=== PATIENT | female | born 1945 | race Caucasian/White ===

== ENCOUNTER → 2017-08-29 | Outpatient (CLI) | payer MEDICARE ==
[2017-08-29 13:24] LABS: CH 31.9; CHCM 32.8; HCT 43.9 % (34.0-46.0); HDW 2.33; HGB 14.5 gm/dL (11.4-16.0); MCH 32.2 pg (25.0-35.0); MCHC 32.9 g/dL (31.0-37.0); MCV 97.9 fL (80.0-100.0); Mean Platelet Volume 7.9; RBC 4.49 m/uL (3.80-5.40); RDW 13.7 % (11.5-15.5); WBC 7.1 k/uL (3.8-10.6)
[2017-08-29 13:30] LABS: Partial Thromboplastin Time 23.3 sec (22.0-30.0)
[2017-08-29 13:38] LABS: Calcium 10.4 mg/dL (8.4-10.2); Total Bilirubin 0.6 mg/dL (0.2-1.3); Total Protein 7.1 g/dL (6.3-8.2)
[2017-08-29 14:12] LABS: Appearance,Urine Clear (Clear); Bilirubin,Urine Negative (Negative); Glucose,Urine (UA) Negative (Negative); Ketones,Urine Negative (Negative); Leukocyte Esterase,Urine Trace (Negative); Mucus,Urine Rare /hpf; Nitrite,Urine Negative (Negative); Particle Count 3879; Protein,Urine Negative (Negative); RBC,Urine <1 /hpf (0-5); Specific Gravity,Urine 1.017 (1.001-1.035); Squamous Epithelial Cell,Urine <1 /hpf (0-4); UA Billing (MACRO vs. MICRO) MICRO; Urobilinogen,Urine <2.0 mg/dL (<2.0); WBC,Urine 2 /hpf (0-5)
== END | disposition home or self-care (01) ==
LOC: LABWHC1 12:43
PROVIDERS: ATTEND Orthopaedic Surgery Sports Medicine
DX: Z01.812 Encounter for preprocedural laboratory examination (principal)
CPT/HCPCS: 36415; 80053; 81001; 85027; 85610; 85730; 87070

== ENCOUNTER → 2018-03-17 | Outpatient (CLI) | payer MEDICARE ==
[2018-03-17 11:35] LABS: Basophils % (A) 0 %; Eosinophils # (A) 0.3 k/uL (0-0.7); Eosinophils % (A) 4 %; HCT 45.3 % (34.0-46.0); HGB 14.8 gm/dL (11.4-16.0); Lymphocytes # (A) 2.1 k/uL (1.0-4.8); Lymphocytes % (A) 28 %; MCH 31.3 pg (25.0-35.0); MCHC 32.6 g/dL (31.0-37.0); MCV 96.1 fL (80.0-100.0); Mean Platelet Volume 7.4; Monocytes # (A) 0.5 k/uL (0-1.0); Monocytes % (A) 7 %; Neutrophils # (A) 4.4 k/uL (1.3-7.7); Neutrophils % (A) 59 %; Platelet Count 265 k/uL (150-450); RBC 4.72 m/uL (3.80-5.40); RDW 13.4 % (11.5-15.5); WBC 7.5 k/uL (3.8-10.6)
[2018-03-17 12:06] LABS: Calcium 9.8 mg/dL (8.4-10.2); Potassium 5.6 mmol/L (3.5-5.1); Total Bilirubin 0.7 mg/dL (0.2-1.3); Total Protein 6.8 g/dL (6.3-8.2)
== END | disposition home or self-care (01) ==
LOC: LABWHC1 10:47
PROVIDERS: ATTEND Family Medicine
DX: E11.22 Type 2 diabetes mellitus with diabetic chronic kidney disease (principal); N18.3 Chronic kidney disease, stage 3 (moderate); E55.9 Vitamin D deficiency, unspecified; E78.5 Hyperlipidemia, unspecified
CPT/HCPCS: 36415; 80053; 80061; 82306; 83036; 85025

== ENCOUNTER → 2018-09-20 | Outpatient (CLI) | payer MEDICARE ==
--- NOTE | 2018-09-23 14:42 | MM ---
Reason for exam: additional evaluation requested from prior study. Last mammogram was performed 2 years and 6 months ago. History: Patient is postmenopausal, has history of breast cancer at age 66, and is nulliparous. Family history of breast cancer in paternal aunt. Benign US biopsy breast VAD RT of the right breast, October 28, 2014. Mastectomy of the left breast, September 21, 2011. Saline implant in the left breast, 2011. Malignant u/S left breast localization of the left breast, August 20, 2011. Malignant u/S left breast localization additional of the left breast, August 20, 2011. Took estrogen for 5 years. Taking antineoplastic beginning at age 66. Right breast reduction. Physical Findings: Nurse did not find any significant physical abnormalities on exam. MG 3D Diag Mammo W/Cad RT CC, MLO, ML, and spot compression MLO view(s) were taken of the right breast. Prior study comparison: March 29, 2016, right breast MG 3d diag mammo w/cad RT. February 27, 2015, right breast MG diagnostic mammo RT w CAD. The breast tissue is heterogeneously dense. This may lower the sensitivity of mammography. Right superior middle depth subtle asymmetry appears improved as fibroglandular tissue on mediolateral and spot compression views. These results were verbally communicated with the patient and result sheet given to the patient on 09/20/18. ASSESSMENT: Benign, BI-RAD 2 RECOMMENDATION: Follow-up diagnostic mammogram of the right breast in 1 year.
== END | disposition home or self-care (01) ==
LOC: RADMAMWWP 07:41
PROVIDERS: ATTEND Family Medicine
DX: Z12.31 Encounter for screening mammogram for malignant neoplasm of breast (principal); C50.912 Malignant neoplasm of unspecified site of left female breast
CPT/HCPCS: 77065; G0279; 77061

== ENCOUNTER 2019-02-22 08:00 | Inpatient (IN) | payer MEDICARE ==
[2019-02-22] MEDS ORDERED: HEPARIN SODIUM,PORCINE 5,000 UNIT/ML 1 ML VIAL IV PRN (09:05)
[2019-02-22] MEDS ORDERED: HEPARIN SODIUM,PORCINE 5,000 UNIT/ML 1 ML VIAL IV ONE (09:05)
--- NOTE | 2019-02-22 09:09 | ED ---
General Adult HPI - General Chief complaint: Chest Pain Stated complaint: Chest pain Time Seen by Provider: 02/22/19 08:02 Source: patient Mode of arrival: EMS Limitations: no limitations - History of Present Illness Initial comments: Dictation was produced using Go[employer] dictation software. please excuse any grammatical, word or spelling errors. Chief Complaint: 73-year-old female past medical history of diabetes dyslipidemia COPD and asthma presents via transfer from [facility] for NSTEMI. History of Present Illness: 73-year-old female yesterday she experience ACS-type symptoms. 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 During cooking she experience mild chest discomfort with radiation to the back and left upper extremity. She states the symptoms was not like anything she is ever expressed before she. She went to the local emergency department. Patient initial EKG did not show any abnormal findings. She did have labs performed initial troponin was negative. Patient second troponin showed an elevation of 0.6. Patient currently is asymptomatic at this time. She does report that her symptoms are worse with exertion. The ROS documented in this emergency department record has been reviewed and confirmed by me. Those systems with pertinent positive or negative responses have been documented in the HPI. All other systems are other negative and/or noncontributory. PHYSICAL EXAM: General Impression: Alert and oriented x3, not in acute distress HEENT: Normocephalic atraumatic, extra-ocular movements intact, pupils equal and reactive to light bilaterally, mucous membranes moist. Cardiovascular: Heart regular rate and rhythm, S1&S2 audible, no murmurs, rubs or gallops Chest: Lungs clear to auscultation bilaterally, no rhonchi, no wheeze, no rales Abdomen: Bowel sounds present, abdomen soft, non-tender, non-distended, no organomegaly Musculoskeletal: Pulses present and equal in all extremities, no peripheral edema Motor: no focal deficits noted Neurological: CN II-XII grossly intact, no focal motor or sensory deficits noted Skin: Intact with no visualized rashes Psych: Normal affect and mood ED course: 73-year-old female transferred from [place] emergency department for elevated troponin and non-ST segment elevation OK. Signs upon arrival are within acceptable limits. Labs and documentation from [facility] reviewed by myself. Patient evaluated at bedside. Patient is asymptomatic at this time. Patient continued on heparin.Patient really had received aspirin prior to transfer. Patient continues to be asymptomatic. Discussed patient case with son physician group Dr. Mosquera who is willing to accept transfer for admission. Cardiology on consultation. EKG interpretation: Ventricular rate 67, normal sinus rhythm, AZ interval 204, QRS 86, QTC 445. No AZ prolongation, no QTC prolongation. There is an isolated T-wave inversion in the aVL. There is also T-wave inversions in the anterior precordial leads. This point these changes are felt to be nonspecific.. - Related Data Home Medications Medication Instructions Recorded Confirmed Citalopram Hydrobromide [CeleXA] 20 mg PO DAILY 04/24/15 02/22/19 Diltiazem HCl [Diltiazem ER] 240 mg PO DAILY 04/24/15 02/22/19 Letrozole 2.5 mg PO DAILY 04/24/15 02/22/19 Montelukast Sodium [Singulair] 10 mg PO DAILY 04/24/15 02/22/19 metFORMIN HCL [Glucophage] 500 mg PO AC-BID 04/24/15 02/22/19 Albuterol Inhaler [Ventolin Hfa 1 - 2 puff INHALATION RT-Q6H PRN 09/06/17 02/22/19 Inhaler] Lisinopril [Zestril] 5 mg PO DAILY 09/06/17 02/22/19 Omeprazole 20 mg PO DAILY PRN 09/06/17 02/22/19 Albuterol Nebulized [Ventolin 2.5 mg INHALATION RT-Q4H PRN 02/22/19 02/22/19 Nebulized] Aspirin EC [Ecotrin Low Dose] 81 mg PO DAILY 02/22/19 02/22/19 Atorvastatin Calcium [Lipitor] 10 mg PO HS 02/22/19 02/22/19 Ergocalciferol (Vitamin D2) 50,000 unit PO Q7D 02/22/19 02/22/19 [Drisdol] Naproxen Sodium [Aleve] 220 - 440 mg PO Q12HR PRN 02/22/19 02/22/19 Allergies Allergy/AdvReac Type Severity Reaction Status Date / Time Sulfa (Sulfonamide Allergy Unknown Verified 02/22/19 09:20 Antibiotics) Childhood Review of Systems ROS Statement: Those systems with pertinent positive or pertinent negative responses have been documented in the HPI. ROS Other: All systems not noted in ROS Statement are negative. Past Medical History Past Medical History: Asthma, COPD, Diabetes Mellitus, Hyperlipidemia Additional Past Medical History / Comment(s): breast cancer History of Any Multi-Drug Resistant Organisms: None Reported Past Surgical History: Adenoidectomy, Cholecystectomy, Orthopedic Surgery, Tonsillectomy Additional Past Surgical History / Comment(s): sinus, esophagus sx Past Anesthesia/Blood Transfusion Reactions: Previous Problems w/ Anesthesia, Motion Sickness Additional Past Anesthesia/Blood Transfusion Reaction / Comment(s): STATES DIFFICULT INTUBATION - STATES "SMALL THROAT". DIFFICULTY WAKING UP. Past Psychological History: No Psychological Hx Reported Smoking Status: Never smoker Past Alcohol Use History: None Reported Past Drug Use History: None Reported - Past Family History Father Family Medical History: Renal Disease Brother(s) Family Medical History: Renal Disease Mother Family Medical History: Deep Vein Thrombosis (DVT) General Exam Limitations: no limitations Course Vital Signs 02/22/19 02/22/19 02/22/19 08:04 08:12 08:30 Temperature 98.1 F Pulse Rate 73 71 Pulse Rate [ 69 [employer] ] Respiratory 16 20 Rate Blood Pressure 109/83 109/83 O2 Sat by Pulse 95 Oximetry 02/22/19 02/22/19 02/22/19 09:00 09:30 10:00 Temperature Pulse Rate 70 72 73 Pulse Rate [ [employer] ] Respiratory 15 19 15 Rate Blood Pressure 109/83 123/74 124/70 O2 Sat by Pulse 94 L 94 L Oximetry Disposition Clinical Impression: NSTEMI (non-ST elevated myocardial infarction) [facility] Condition: Fair Referrals: Annel Morgan MD [Primary Care Provider] - 1-2 days Decision Time: 10:17
[2019-02-22] MEDS: HEPARIN SOD,PORK IN 0.45% NACL 25,000 UNIT in 0.45% NACL 1 250ML.BAG IV SCH (09:14)
[2019-02-22] MEDS ORDERED: NITROGLYCERIN SL TABS 0.4 MG TAB SUBLINGUAL PRN (10:13)
[2019-02-22] MEDS ORDERED: PANTOPRAZOLE 40 MG TABLET PO PRN (12:34)
--- NOTE | 2019-02-22 12:39 | P.HPIM ---
History of Present Illness H&P Date: 02/22/19 The patient is a 73 yo F with a PMH of HTN, DM, HLD, breast cancer s/p L sided mastectomy, and asthma who presented to [facility]'s ED on night of 02/21/19 for sudden onset of chest pain. 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 She reports that her pain resolved on her way to the ED. She did not take anything to relieve her symptoms. She reports never having such pain before. She denied prior history of MIs or even having undergone stress testing. She reported family history of MIs w/ CABG in her father and her mother having suffered multiple TIAs. At time of the interview, she reports that her symptoms had resolved completely and she was at her baseline. The patient underwent an extensive evaluation in [place] ED w/ EKG showing NSR @ 67 bpm w/ first degree AV block and TW flattening in leads V1- V3 and no ST-segment changes. The patient's initial troponin was < 0.05 which increased to 0.06. WBC was 7.9, Hgb 14.2, platelets 261, BUN 19, Cr 1.0, and Magnesium 1.5. The patient was transferred to the [facility] ED and admitted to the medicine service for further management. Review of Systems Pertinent positives and negatives as discussed in HPI, a complete review of systems was performed and all other systems are negative. Past Medical History Past Medical History: Asthma, Cancer, COPD, Diabetes Mellitus, GERD/Reflux, Hyperlipidemia, Hypertension, Pneumonia, Renal Disease Additional Past Medical History / Comment(s): Bronchitis, NIDDM type II, neuropathy bilateral feet, L breast cancer with surgery, CKD thought d/t motrin but numbers are improving, ZANE-pt lost her CPap during a move, generalized arthritis, L carpal tunnel syndrome, UTIs, sinus problems-better since surgery. History of Any Multi-Drug Resistant Organisms: None Reported Past Surgical History: Adenoidectomy, Cholecystectomy, Orthopedic Surgery, Tonsillectomy Additional Past Surgical History / Comment(s): L breast biopsy, L mastectomy/reconstructive surgery, total L knee arthroplasty, bilateral feet bunionectomies, colonoscopy. Past Anesthesia/Blood Transfusion Reactions: Previous Problems w/ Anesthesia, Motion Sickness Additional Past Anesthesia/Blood Transfusion Reaction / Comment(s): STATES DIFFICULT INTUBATION - STATES "SMALL THROAT". DIFFICULTY WAKING UP. Smoking Status: Never smoker - Past Family History Father Family Medical History: Renal Disease Additional Family Medical History / Comment(s): Father was born with one functioning kidney. He had a OK in his late 70s. Brother(s) Family Medical History: Cancer Additional Family Medical History / Comment(s): Kidney cancer Mother Family Medical History: Deep Vein Thrombosis (DVT) Additional Family Medical History / Comment(s): Mother lived to be 95 yrs old. Medications and Allergies Home Medications Medication Instructions Recorded Confirmed Type Citalopram Hydrobromide [CeleXA] 20 mg PO DAILY 04/24/15 02/22/19 History Diltiazem HCl [Diltiazem ER] 240 mg PO DAILY 04/24/15 02/22/19 History Letrozole 2.5 mg PO DAILY 04/24/15 02/22/19 History Montelukast Sodium [Singulair] 10 mg PO DAILY 04/24/15 02/22/19 History metFORMIN HCL [Glucophage] 500 mg PO AC-BID 04/24/15 02/22/19 History Albuterol Inhaler [Ventolin Hfa 1 - 2 puff INHALATION RT-Q6H PRN 09/06/17 02/22/19 History Inhaler] Lisinopril [Zestril] 5 mg PO DAILY 09/06/17 02/22/19 History Omeprazole 20 mg PO DAILY PRN 09/06/17 02/22/19 History Albuterol Nebulized [Ventolin 2.5 mg INHALATION RT-Q4H PRN 02/22/19 02/22/19 History Nebulized] Aspirin EC [Ecotrin Low Dose] 81 mg PO DAILY 02/22/19 02/22/19 History Atorvastatin Calcium [Lipitor] 10 mg PO HS 02/22/19 02/22/19 History Ergocalciferol (Vitamin D2) 50,000 unit PO Q7D 02/22/19 02/22/19 History [Drisdol] Naproxen Sodium [Aleve] 220 - 440 mg PO Q12HR PRN 02/22/19 02/22/19 History Allergies Allergy/AdvReac Type Severity Reaction Status Date / Time Sulfa (Sulfonamide Allergy Unknown Verified 02/22/19 09:20 Antibiotics) Childhood Physical Exam Vitals: Vital Signs Temp Pulse Pulse Resp BP BP Pulse Ox 02/22/19 11:30 85 16 02/22/19 11:28 98.2 F 85 16 131/84 95 02/22/19 10:00 73 15 124/70 94 L 02/22/19 09:30 72 19 123/74 94 L 02/22/19 09:00 70 15 109/83 02/22/19 08:30 71 20 109/83 02/22/19 08:12 69 02/22/19 08:04 98.1 F 73 16 109/83 95 Intake and Output 02/21/19 02/22/19 02/22/19 22:59 06:59 14:59 Other: Weight 73.028 kg General: non toxic, no distress, appears at stated age, obese Derm: no unusual rashes/lesions no unusual ecchymoses, warm, dry Head: atraumatic, normocephalic, symmetric Eyes: EOMI, no lid lag, anicteric sclera, pupils equal round reactive to light ENT: Nose and ears atraumatic, no thrush, no pharyngeal erythema Neck: No thyromegaly, no cervical lymphadenopathy, trachea midline, supple Mouth: no lip lesion, mucus membranes moist Cardiovascular: S1S2 reg, no murmur, positive posterior tibial pulse bilateral, no edema, capillary refill less than 2 seconds Lungs: CTA bilateral, no rhonchi, no rales , no accessory muscle use Abdominal: soft, nontender to palpation, no guarding, no appreciable organomegaly, normal bowel sounds Ext: no gross muscle atrophy, muscle strength 5 out of 5 in all 4 extremities grossly, no contractures, Neuro: CN II-XI grossly intact, light touch intact all 4 extremities, finger to nose within normal limits, Psych: Alert, oriented, appropriate affect Thrombosis Risk Factor Assmnt - Choose All That Apply Any of the Below Risk Factors Present?: Yes Each Factor Represents 1 point: Abnormal pulmonary function (COPD), Acute OK, Obesity (BMI >25) Other Risk Factors: Yes Each Risk Factor Represents 2 Points: Age 61-74 years Other congenital or acquired thrombophilia - If yes, enter type in comment: No Thrombosis Risk Factor Assessment Total Risk Factor Score: 5 Thrombosis Risk Factor Assessment Level: High Risk Assessment and Plan Plan: NSTEMI -C/w Heparin infusion -C/w Aspirin, Statin, Plavix -Nitro prn -Cardiology consulted -Trend troponin and EKGs -Supplemental oxygen DM -ALICIA with FS -Hold oral hypoglycemics HTN, HLD, Asthma -Resume home medications DVT prophylaxis -Heparin infusion The patient is admitted with an anticipated greater than 2 midnight stay for evaluation of NSTEMI. CODE STATUS:No Code Discussed with: Patient, Daughter Anticipated discharge date: 02/25/[address]: Home A total of 45 minutes was spent on the care of this complex patient more than 50% of the time was spent in counseling and care coordination.
[2019-02-22] MEDS: CLOPIDOGREL 75 MG TAB PO SCH (13:21)
[2019-02-22] MEDS: ATORVASTATIN 80 MG TAB PO SCH (13:21)
[2019-02-22] MEDS: INSULIN ASPART (NovoLOG) 100 UNIT/ML VIAL SQ SCH ×2 (17:09→20:54)
[2019-02-22 17:10] LABS: Glucose,Whole Blood 100 mg/dL (75-99)
[2019-02-22] MEDS ORDERED: ACETAMINOPHEN TAB 325 MG TAB PO PRN (17:36)
[2019-02-22 20:39] LABS: Glucose,Whole Blood 202 mg/dL (75-99)
[2019-02-23 06:17] LABS: Glucose,Whole Blood 133 mg/dL (75-99)
[2019-02-23] MEDS: INSULIN ASPART (NovoLOG) 100 UNIT/ML VIAL SQ SCH ×4 (06:19→20:55)
[2019-02-23] MEDS: ALBUTEROL NEBULIZED 2.5 MG/3 ML INHALATION PRN ×3 (07:29→21:03)
[2019-02-23 08:04] LABS: Cholesterol 150 mg/dL (<200); HDL Cholesterol 52 mg/dL (40-60); LDL Cholesterol,Calculated 72 mg/dL (0-99); Triglycerides 129 mg/dL (<150)
[2019-02-23] MEDS: MONTELUKAST 10 MG TAB PO SCH (08:19)
[2019-02-23] MEDS: LISINOPRIL 5 MG TAB PO SCH (08:19)
[2019-02-23] MEDS: CLOPIDOGREL 75 MG TAB PO SCH (08:19)
[2019-02-23] MEDS: LETROZOLE 2.5 MG TAB PO SCH (08:19)
[2019-02-23] MEDS: ATORVASTATIN 80 MG TAB PO SCH (08:19)
[2019-02-23] MEDS: CITALOPRAM HYDROBROMIDE 20 MG TAB PO SCH (08:19)
--- NOTE | 2019-02-23 08:44 | P.CRDCN ---
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 Apparently she walked from morning, 8:00 to 6:00 in the evening, and went home. She started having some tight chest discomfort on the left side of the chest going to the left arm and also the back. She didn't feel nauseous, but she had a Prozac and vomiting and she was felt slightly short of breath. She did take some of her inhalers without much help. Finally she called her daughter and with help of her neighbor's, patient went to [facility]. Patient was treated there and was transferred to [facility]. By the time patient went to the hospital, her chest pains eased up. Since admission here patient has been s table. However her troponins showed mild elevation suggestive of possible unstable angina versus non-STEMI. Her EKG did not reveal any acute changes. In view of her typical chest pain and risk factor profile with abnormal cardiac enzymes, patient is advised to have a cardiac catheterization for definitive diagnosis. Patient and family were explained the risks and benefits of the procedure. Review of Systems As per the chart Past Medical History Past Medical History: Asthma, Cancer, COPD, Diabetes Mellitus, GERD/Reflux, Hy perlipidemia, Hypertension, Pneumonia, Renal Disease Additional Past Medical History / Comment(s): Bronchitis, NIDDM type II, neuropathy bilateral feet, L breast cancer with surgery, CKD thought d/t motrin but numbers are improving, ZANE-pt lost her CPap during a move, generalized arthritis, L carpal tunnel syndrome, UTIs, sinus problems-better since surgery. History of Any Multi-Drug Resistant Organisms: None Reported Past Surgical History: Adenoidectomy, Cholecystectomy, Orthopedic Surgery, Tonsillectomy Additional Past Surgical History / Comment(s): L breast biopsy, L mastectomy/reconstructive surgery, total L knee arthroplasty, bilateral feet bunionectomies, colonoscopy. Past Anesthesia/Blood Transfusion Reactions: Previous Problems w/ Anesthesia, Motion Sickness Additional Past Anesthesia/Blood Transfusion Reaction / Comment(s): STATES DIFFICULT INTUBATION - STATES "SMALL THROAT". DIFFICULTY WAKING UP. Smoking Status: Never smoker - Past Family History Father Family Medical History: Renal Disease Additional Family Medical History / Comment(s): Father was born with one functioning kidney. He had a [place] in his late 70s. Brother(s) Family Medical History: Cancer Additional Family Medical History / Comment(s): Kidney cancer Mother Family Medical History: Deep Vein Thrombosis (DVT) Additional Family Medical History / Comment(s): Mother lived to be 95 yrs old. Medications and Allergies Home Medications Medication Instructions Recorded Confirmed Type Citalopram Hydrobromide [CeleXA] 20 mg PO DAILY 04/24/15 02/22/19 History Diltiazem HCl [Diltiazem ER] 240 mg PO DAILY 04/24/15 02/22/19 History Letrozole 2.5 mg PO DAILY 04/24/15 02/22/19 History Montelukast Sodium [Singulair] 10 mg PO DAILY 04/24/15 02/22/19 History metFORMIN HCL [Glucophage] 500 mg PO AC-BID 04/24/15 02/22/19 History Albuterol Inhaler [Ventolin Hfa 1 - 2 puff INHALATION RT-Q6H PRN 09/06/17 02/22/19 History Inhaler] Lisinopril [Zestril] 5 mg PO DAILY 09/06/17 02/22/19 History Omeprazole 20 mg PO DAILY PRN 09/06/17 02/22/19 History Albuterol Nebulized [Ventolin 2.5 mg INHALATION RT-Q4H PRN 02/22/19 02/22/19 History Nebulized] Aspirin EC [Ecotrin Low Dose] 81 mg PO DAILY 02/22/19 02/22/19 History Atorvastatin Calcium [Lipitor] 10 mg PO HS 02/22/19 02/22/19 History Ergocalciferol (Vitamin D2) 50,000 unit PO Q7D 02/22/19 02/22/19 History [Drisdol] Naproxen Sodium [Aleve] 220 - 440 mg PO Q12HR PRN 02/22/19 02/22/19 History Allergies Allergy/AdvReac Type Severity Reaction Status Date / Time Sulfa (Sulfonamide Allergy Unknown Verified 02/22/19 09:20 Antibiotics) Childhood Physical Exam Vitals: Vital Signs Temp Pulse Pulse Resp BP BP Pulse Ox 02/23/19 07:37 74 02/23/19 07:29 72 02/23/19 04:00 97.8 F 89 18 174/89 96 02/23/19 02:59 82 02/22/19 23:17 82 18 152/72 95 02/22/19 20:00 98 F 80 18 168/80 94 L 02/22/19 17:22 98.2 F 81 18 157/82 95 02/22/19 16:00 97.6 F 84 16 142/76 94 L 02/22/19 11:30 85 16 02/22/19 11:28 98.2 F 85 16 131/84 95 02/22/19 10:00 73 15 124/70 94 L 02/22/19 09:30 72 19 123/74 94 L 02/22/19 09:00 70 15 109/83 Intake and Output 02/22/19 02/23/19 02/23/19 22:59 06:59 14:59 Intake Total 549.52 79.066 Balance 549.52 79.066 Intake: Intake, IV Titration 69.52 79.066 Amount Heparin Sod,Pork in 0.45% 69.52 79.066 NaCl 25,000 unit In 0.45 % NaCl 1 250ml.bag @ 12 UNITS/KG/HR 8.763 mls/hr IV .Q24H [facility] Rx#: [id number] Oral 480 Other: # Voids 1 1 Weight 71.5 kg GENERAL EXAM: Patient is alert and oriented and doesn't appear to be in any acute distress HEENT: Normocephalic. Normal reaction of pupils, equal size, normal range of extraocular motion. No erythema or exudates in the throat. NECK: No masses, no nuchal rigidity. CHEST: No chest wall deformity. LUNGS: Equal air entry with no crackles or wheeze. HEART: S1 and S2 normal with no audible mumurs or gallops. Regular rhythm, femorals equal on both sides.. ABDOMEN: No hepatosplenomegaly, normal bowel sounds, no guarding or rigidity. SKIN: No rashes CENTRAL NERVOUS SYSTEM: No focal deficits. EXTREMITIES: No cyanosis, clubbing or edema. Results Cardiac Enzymes 02/22/19 02/22/19 Range/Units 11:03 16:23 Troponin I 0.406 H* 0.329 H* (0.000-0.034) ng/mL Coagulation 02/22/19 02/22/19 02/23/19 Range/Units 16:23 23:38 07:07 APTT 41.6 H 91.6 H 72.3 H (22.0-30.0) sec Lipids 02/23/19 Range/Units 07:07 Triglycerides 129 (<150) mg/dL Cholesterol 150 (<200) mg/dL HDL Cholesterol 52 (40-60) mg/dL Current Medications Generic Name Dose Route Start Last Admin Trade Name Maciel PRN Reason Stop Dose Admin Acetaminophen 650 mg 02/22/19 17:36 02/23/19 08:19 Tylenol Tab PO 650 mg Q6HR PRN Administration Fever and/ or Pain Albuterol Sulfate 2.5 mg 02/22/19 12:34 02/23/19 07:29 Ventolin Nebulized INHALATION 2.5 mg RT-Q4H PRN Administration Shortness Of Breath Aspirin 325 mg 02/23/19 09:00 02/23/19 08:19 Aspirin PO 325 mg DAILY [facility] Administration Atorvastatin Calcium 80 mg 02/22/19 12:45 02/23/19 08:19 Lipitor PO 80 mg DAILY [facility] Administration Citalopram Hydrobromide 20 mg 02/23/19 09:00 02/23/19 08:19 Celexa PO 20 mg DAILY [facility] Administration Clopidogrel Bisulfate 75 mg 02/22/19 12:45 02/23/19 08:19 Plavix PO 75 mg DAILY [facility] Administration Diltiazem HCl 240 mg 02/23/19 09:00 02/23/19 08:19 Cardizem Cd PO 240 mg DAILY [facility] Administration Ergocalciferol 50,000 unit 02/28/19 09:00 Vitamin D2 PO Q7D [facility] Heparin Sodium (Porcine) 0 unit 02/22/19 09:05 02/22/19 17:14 Heparin IV 1,825 unit PER PROTOCOL PRN Administration Low PTT Protocol Heparin Sodium/Sodium Chloride 250 mls @ 8.763 mls/hr 02/22/19 09:15 02/23/19 00:54 25,000 unit/ Sodium Chloride IV 12 units/kg/hr .Q24H [facility] 8.763 mls/hr Titration Protocol 12 UNITS/KG/HR Insulin Aspart 0 unit 02/22/19 17:30 02/23/19 06:19 Novolog SQ Not Given ACHS [facility] Protocol Letrozole 2.5 mg 02/23/19 09:00 02/23/19 08:19 Femara PO 2.5 mg DAILY [facility] Administration Lisinopril 5 mg 02/23/19 09:00 02/23/19 08:19 Zestril PO 5 mg DAILY [facility] Administration Montelukast Sodium 10 mg 02/23/19 09:00 02/23/19 08:19 Singulair PO 10 mg DAILY [facility] Administration Nitroglycerin 0.4 mg 02/22/19 10:13 Nitrostat SUBLINGUAL Q5M PRN Chest Pain Pantoprazole Sodium 40 mg 02/22/19 12:34 Protonix PO DAILY PRN Heartburn Intake and Output 02/22/19 02/23/19 02/23/19 22:59 06:59 14:59 Intake Total 549.52 79.066 Balance 549.52 79.066 Intake: Intake, IV Titration 69.52 79.066 Amount Heparin Sod,Pork in 0.45% 69.52 79.066 NaCl 25,000 unit In 0.45 % NaCl 1 250ml.bag @ 12 UNITS/KG/HR 8.763 mls/hr IV .Q24H [facility] Rx#: [id number] Oral 480 Other: # Voids 1 1 Weight 71.5 kg EKG Interpretations (text) Sinus rhythm with nonspecific ST-T changes Assessment and Plan (1) NSTEMI (non-ST elevated myocardial infarction) Current Visit: Yes Status: Acute Code(s): I21.4 - NON-ST ELEVATION (NSTEMI) MYOCARDIAL INFARCTION SNOMED Code(s): 22496447 (2) Asthma Current Visit: No Status: Acute Code(s): J45.909 - UNSPECIFIED ASTHMA, UNCOMPLICATED SNOMED Code(s): 558720491 (3) Diabetes mellitus Current Visit: No Status: Acute Code(s): E11.9 - TYPE 2 DIABETES MELLITUS WITHOUT COMPLICATIONS SNOMED Code(s): 51100259 (4) GERD (gastroesophageal reflux disease) Current Visit: No Status: Acute Code(s): K21.9 - GASTRO-ESOPHAGEAL REFLUX DISEASE WITHOUT ESOPHAGITIS SNOMED Code(s): 589279564 (5) Hyperlipidemia Current Visit: No Status: Acute Code(s): E78.5 - HYPERLIPIDEMIA, UNSPECIFIED SNOMED Code(s): 40798156 (6) Hypertension Current Visit: No Status: Acute Code(s): I10 - ESSENTIAL (PRIMARY) HYPERTENSION SNOMED Code(s): 64093161 Plan: Patient to be continued on heparin, nitrates, beta nikolay, aspirin and probably Plavix. Echocardiogram. We'll proceed with cardiac catheterization for definitive diagnosis
[2019-02-23] MEDS ORDERED: ASPIRIN 325 MG TAB PO SCH (09:00)
[2019-02-23] MEDS ORDERED: DILTIAZEM CD 240 MG CAP.ER.24H PO SCH (09:00)
[2019-02-23] MEDS: METOPROLOL TARTRATE 25 MG TAB PO SCH ×2 (09:48→23:30)
[2019-02-23] MEDS: HEPARIN SOD,PORK IN 0.45% NACL 25,000 UNIT in 0.45% NACL 1 250ML.BAG IV SCH (09:49)
[2019-02-23] MEDS ORDERED: IV FLUID CONTINUATION 1,000 ML IV ONE (11:25)
[2019-02-23] MEDS ORDERED: fentaNYL (PF) 50 MCG/ML 2 ML AMP IV ONE (11:25)
[2019-02-23] MEDS ORDERED: MIDAZOLAM (PF) 2 MG/2 ML VIAL IV ONE (11:25)
[2019-02-23] MEDS ORDERED: LIDOCAINE 1% INJ 10MG/ML (20 ML MDV) SQ ONE (11:28)
[2019-02-23] MEDS ORDERED: VERAPAMIL SYRINGE (5 MG/10 ML) INTRAARTER ONE (11:32)
[2019-02-23] MEDS ORDERED: HEPARIN SODIUM 1,000 UN/ML (10ML VL) IV ONE (11:33)
[2019-02-23] MEDS ORDERED: BIVALIRUDIN BOLUS 250 MG/50 ML IV ONE (12:04)
[2019-02-23] MEDS ORDERED: BIVALIRUDIN 250 MG in SODIUM CHLORIDE 0.9% 39 ML IV ONE (12:05)
[2019-02-23] MEDS ORDERED: CLOPIDOGREL 75 MG TAB PO ONE ×2 (12:08)
[2019-02-23] MEDS ORDERED: NITROGLYCERIN 1000MCG/10ML SYRINGE INTRACORON ONE (12:11)
[2019-02-23] MEDS ORDERED: IOPAMIDOL-370 125ML BTL INJ ONE (12:14)
--- NOTE | 2019-02-23 12:15 | P.PN ---
Subjective Progress Note Date: 02/23/19 Objective - Vital Signs Vital signs: Vital Signs Temp 97.7 F 02/23/19 08:00 Pulse 68 02/23/19 11:00 Resp 18 02/23/19 11:00 BP 130/67 02/23/19 11:00 Pulse Ox 94 L 02/23/19 11:00 Intake & Output 02/22/19 02/23/19 02/23/19 18:59 06:59 18:59 Intake Total 429.52 199.066 78.137 Balance 429.52 199.066 78.137 Weight 73.028 kg 71.5 kg Intake: Intake, IV Titration 69.52 79.066 78.137 Amount Heparin Sod,Pork in 0.45% 69.52 79.066 78.137 NaCl 25,000 unit In 0.45 % NaCl 1 250ml.bag @ 12 UNITS/KG/HR 8.763 mls/hr IV .Q24H ANGIE Rx#: [id number] Oral 360 120 Other: # Voids 1 1 2 - Exam Constitutional: No acute distress, conversant, pleasant Eyes: Anicteric sclerae, moist conjunctiva, no lid-lag, PERRLA ENMT: NC/AT,Oropharynx clear, no erythema, exudates Neck:Supple, FROM, no masses, or JVD, No carotid bruits; No thyromegaly Lungs: Clear to auscultation, Clear to percussion, Normal respiratory effort, no accessory muscle use Cardiovascular: Heart regular in rate and rhythm, No murmurs, gallops, or rubs no peripheral edema Abdominal: Soft Nontender, nom distended, no guarding, no rebound or rigidity, Normoactive bowel sounds No hepatomegaly, No splenomegaly, No palpable mass No abdominal wall hernia noted Skin: Normal temperature, tone, texture, turgor, No induration No subcutaneous nodules, No rash, lesions, No ulcers Extremities:No digital cyanosis No clubbing, Pedal pulses intact and symmetrical Radial pulses intact and symmetrical Normal gait and station, No calf tenderness Psychiatric: Alert and oriented to person, place and time, Appropriate affect Intact judgement Neuro: Muscles Strength 5/5 in all 4 extremities, Sensation to light touch grossly present throughout, Cranial nerves II-XII grossly intact. No focal sensory deficits - Labs Labs: Abnormal Lab Results - Last 24 Hours (Table) 02/22/19 02/22/19 02/22/19 Range/Units 11:03 16:23 16:23 APTT 41.6 H (22.0-30.0) sec POC Glucose (mg/dL) (75-99) mg/dL Troponin I 0.406 H* 0.329 H* (0.000-0.034) ng/mL 02/22/19 02/22/19 02/22/19 Range/Units 17:08 20:38 23:38 APTT 91.6 H (22.0-30.0) sec POC Glucose (mg/dL) 100 H 202 H (75-99) mg/dL Troponin I (0.000-0.034) ng/mL 02/23/19 02/23/19 Range/Units 06:16 07:07 APTT 72.3 H (22.0-30.0) sec POC Glucose (mg/dL) 133 H (75-99) mg/dL Troponin I (0.000-0.034) ng/mL Assessment and Plan (1) NSTEMI (non-ST elevated myocardial infarction) Narrative/Plan: -C/w Heparin infusion -C/w Aspirin, Statin, Plavix -Nitro prn -Appreciate cardiology recommendations will plan for the patient go to have heart catheterization today -Trend troponin from .406 down to .329 -Supplemental oxygen Current Visit: Yes Status: Acute Code(s): I21.4 - NON-ST ELEVATION (NSTEMI) MYOCARDIAL INFARCTION SNOMED Code(s): 03793691 (2) Hypertension Narrative/Plan: * Stable and controlled * Continue with home regimen of Cardizem, metoprolol and lisinopril Current Visit: No Status: Chronic Code(s): I10 - ESSENTIAL (PRIMARY) HYPERTENSION SNOMED Code(s): 64583158 (3) Asthma Narrative/Plan: * Stable disease without any acute exacerbation Current Visit: No Status: Chronic Code(s): J45.909 - UNSPECIFIED ASTHMA, UNCOMPLICATED SNOMED Code(s): 923861853 (4) Diabetes mellitus Narrative/Plan: -Continue with correctional scale insulin coverage -Hold oral hypoglycemics Current Visit: No Status: Chronic Code(s): E11.9 - TYPE 2 DIABETES MELLITUS WITHOUT COMPLICATIONS SNOMED Code(s): 74687849 (5) Hyperlipidemia Narrative/Plan: * On Lipitor continue with current statin regimen Current Visit: No Status: Chronic Code(s): E78.5 - HYPERLIPIDEMIA, UNSPECIFIED SNOMED Code(s): 04165084 Plan: Disposition * Anticipated discharge 1-2 days * Appreciate cardiology recommendations follow-up heart catheterization results
[2019-02-23] MEDS ORDERED: MAG HYDROX/AL HYDROX/SIMETH 30 ML CUP PO PRN (12:27)
[2019-02-23] MEDS ORDERED: ATROPINE SULFATE 0.1 MG/ML 10ML SYRINGE IV PRN (12:27)
[2019-02-23] MEDS ORDERED: RX INFO: IV CONTRAST WAS GIVEN 1 EACH MISC MISCELLANE PRN (12:27)
[2019-02-23] MEDS ORDERED: ZOLPIDEM 5 MG TAB PO PRN (12:27)
[2019-02-23] MEDS ORDERED: NITROGLYCERIN SL TABS 0.4 MG TAB SUBLINGUAL PRN (12:27)
[2019-02-23] MEDS ORDERED: SODIUM CHLORIDE 0.9% 1,000 ML IV SCH (12:30)
[2019-02-23 12:50] LABS: Glucose,Whole Blood 99 mg/dL (75-99)
[2019-02-23 14:22] VITALS: BMI 30.7
--- NOTE | 2019-02-23 15:02 | PTCA ---
PERCUTANEOUSTRANS CORORONARY ANGIOGRAPHY Mrs Brink is a 73-year-old female with a history of hypertension, hyperlipidemia, diabetes mellitus, who presented with symptoms of chest discomfort and mild elevation of troponin. She underwent cardiac catheterization by Dr. Francois and was found to have critical stenosis involving the mid LAD. In view of that, recommendation was made regarding angioplasty and stenting. The procedures, risks and complication were discussed with the patient, who is in full understanding and agreement. PROCEDURE: A 6-Lithuanian FL3.5 guiding catheter introduced into the system after cannulating the left main. A 0.014 balanced medium weight J-wire was advanced and positioned in the distal LAD. Subsequently, 2.5 x 12 mm Trek balloon was advanced and one inflation at 8 atmospheres was done. Following that, the balloon was removed and a 2.25 x 15 mm Xience Jonelle stent was deployed and post-dilated at 16 atmospheres. After the last inflation, after appropriate wait, the balloon and the guidewire were withdrawn back in the guiding catheter. Images were obtained and repeated. Those images reveal stable successful stenting. At that point, the guiding catheter, the balloon and the guidewire were removed, the sheath was removed. Hemostasis was obtained with deployment of a TR band. There was no immediate complication. Patient is returned to her room in stable condition. Of note, patient had no chest discomfort or significant EKG changes with the inflation. She received oral loading dose of clopidogrel as well as Angiomax per protocol. RESULTS: Successful stenting of the mid LAD with reduction of stenosis from 99% to 0%. RECOMMENDATION: Patient will be continued on aspirin, Plavix, beta blockers, MARÍA inhibitor, and statin. The importance of dual antiplatelet treatment were discussed with the patient and her family and they are in full understanding and agreement. Duration of procedure is 20 minutes. MMODL / IJN: [id number] /
[2019-02-23 16:30] LABS: Glucose,Whole Blood 128 mg/dL (75-99)
--- NOTE | 2019-02-23 18:58 | ECHOF ---
Referral Reason:Chest pain and cardiomyopathy MEASUREMENTS -------- HEIGHT: 154.9 cm WEIGHT: 71.2 kg BP: RVIDd: 2.4 cm (< 3.3) IVSd: 1.0 cm (0.6 - 1.1) LVIDd: 4.4 cm (3.9 - 5.3) LVPWd: 1.3 cm (0.6 - 1.1) IVSs: 1.6 cm LVIDs: 2.2 cm LVPWs: 1.5 cm Ao Diam: 2.7 cm (2.0 - 3.7) AV Cusp: 1.7 cm (1.5 - 2.6) LA Diam: 2.9 cm (2.7 - 3.8) MV EXCURSION: 13.362 mm (> 18.000) MV EF SLOPE: 87 mm/s (70 - 150) EPSS: 0.5 cm MV E Navid: 0.78 m/s MV DecT: 270 ms MV A Navid: 0.83 m/s MV E/A Ratio: 0.94 RAP: 5.00 mmHg RVSP: 12.60 mmHg FINDINGS -------- Sinus rhythm. This was a technically difficult study with suboptimal views. The left ventricular size is normal. There is mild concentric left ventricular hypertrophy. Overa ll left ventricular systolic function is mild-moderately impaired with, an EF between 40 - 45 %. Mi d anterior LV wall motion is hypokinetic. Mid anteroseptal LV wall motion is hypokinetic. Apica l anterior LV wall motion is hypokinetic. Apical lateral LV wall motion is normal. Apical inferi or LV wall motion is hypokinetic. Apical septum LV wall motion is hypokinetic. The right ventricle is normal in size. The left atrial size is normal. The right atrial size is normal. Lumason used The aortic valve is trileaflet, and appears structurally normal. No aortic stenosis or regurgitation. Mild mitral annular calcification present. Mild mitral regurgitation is present. Mild tricuspid regurgitation present. There is no evidence of pulmonary hypertension. The right v entricular systolic pressure, as measured by Doppler, is 12.60mmHg. There is no pulmonic regurgitation present. The aortic root size is normal. IVC Not well visulized. There is no pericardial effusion. CONCLUSIONS -------- 1. Sinus rhythm. 2. This was a technically difficult study with suboptimal views. 3. The left ventricular size is normal. 4. There is mild concentric left ventricular hypertrophy. 5. Overall left ventricular systolic function is mild-moderately impaired with, an EF between 40 - 45 %. 6. Mid anterior LV wall motion is hypokinetic. 7. Apical anterior LV wall motion is hypokinetic. 8. Apical lateral LV wall motion is normal. 9. Apical inferior LV wall motion is hypokinetic. 10. Apical septum LV wall motion is hypokinetic. 11. The left atrial size is normal. 12. Lumason used 13. The aortic valve is trileaflet, and appears structurally normal. No aortic stenosis or regurgitat ion. 14. Mild mitral annular calcification present. 15. Mild mitral regurgitation is present. 16. Mild tricuspid regurgitation present. 17. There is no evidence of pulmonary hypertension. 18. There is no pulmonic regurgitation present. 19. The aortic root size is normal. 20. IVC Not well visulized. 21. There is no pericardial effusion. PAINTER PLATE: Ruth Bonilla RDCS
[2019-02-23 20:56] LABS: Glucose,Whole Blood 125 mg/dL (75-99)
[2019-02-23 21:16] LABS: Hemoglobin A1C 7.2 % (4.0-6.0)
[2019-02-23 22:09] VITALS: RESP 18
[2019-02-24 05:55] LABS: Glucose,Whole Blood 119 mg/dL (75-99)
[2019-02-24] MEDS: INSULIN ASPART (NovoLOG) 100 UNIT/ML VIAL SQ SCH ×2 (06:21→12:34)
[2019-02-24 06:48] LABS: African American GFR (CKD) >90 (>60 ml/min/1.73 sqM); Anion Gap 3 mmol/L; Blood Urea Nitrogen 18 mg/dL (7-17); Calcium 9.1 mg/dL (8.4-10.2); Carbon Dioxide 23 mmol/L (22-30); Chloride 111 mmol/L (98-107); Glucose 120 mg/dL (74-99); Potassium 4.9 mmol/L (3.5-5.1); Sodium 137 mmol/L (137-145)
[2019-02-24] MEDS ORDERED: ASPIRIN 81 MG PO SCH (09:00)
[2019-02-24] MEDS: ATORVASTATIN 80 MG TAB PO SCH (09:17)
[2019-02-24] MEDS: MONTELUKAST 10 MG TAB PO SCH (09:17)
[2019-02-24] MEDS: METOPROLOL TARTRATE 25 MG TAB PO SCH (09:17)
[2019-02-24] MEDS: CLOPIDOGREL 75 MG TAB PO SCH (09:17)
[2019-02-24] MEDS: LETROZOLE 2.5 MG TAB PO SCH (09:18)
[2019-02-24] MEDS: CITALOPRAM HYDROBROMIDE 20 MG TAB PO SCH (09:18)
[2019-02-24] MEDS: LISINOPRIL 5 MG TAB PO SCH (09:18)
[2019-02-24 09:32] VITALS: TEMP 98.3
[2019-02-24] MEDS: ALBUTEROL NEBULIZED 2.5 MG/3 ML INHALATION PRN (09:32)
[2019-02-24 12:01] LABS: Glucose,Whole Blood 146 mg/dL (75-99)
[2019-02-24 12:53] VITALS: BP 138/69; PULSE 61
[2019-02-28] MEDS ORDERED: ERGOCALCIFEROL 50,000 UNIT CAP PO SCH (09:00)
== END 2019-02-24 13:29 | disposition home or self-care (01) | DRG 247 ==
LOC: EC 08:00 → 3SCARD 10:13
PROVIDERS: ADMIT Internal Medicine; ATTEND Internal Medicine
PROC: B2111ZZ Fluoroscopy of Multiple Coronary Arteries using Low Osmolar Contrast (ICD-10-PCS; 2019-02-23)
PROC: 027034Z Dilation of Coronary Artery, One Artery with Drug-eluting Intraluminal Device, Percutaneous Approach (ICD-10-PCS; principal; 2019-02-23 11:10)
PROC: 4A023N7 Measurement of Cardiac Sampling and Pressure, Left Heart, Percutaneous Approach (ICD-10-PCS; 2019-02-23 11:10)
DX: I21.4 Non-ST elevation (NSTEMI) myocardial infarction (principal); E11.22 Type 2 diabetes mellitus with diabetic chronic kidney disease; E11.40 Type 2 diabetes mellitus with diabetic neuropathy, unspecified; Z79.84 Long term (current) use of oral hypoglycemic drugs; E78.00 Pure hypercholesterolemia, unspecified; E78.5 Hyperlipidemia, unspecified; G47.33 Obstructive sleep apnea (adult) (pediatric); I12.9 Hypertensive chronic kidney disease with stage 1 through stage 4 chronic kidney disease, or unspecified chronic kidney disease; I44.0 Atrioventricular block, first degree; J44.9 Chronic obstructive pulmonary disease, unspecified; K21.9 Gastro-esophageal reflux disease without esophagitis; N18.9 Chronic kidney disease, unspecified; Z66 Do not resuscitate; Z79.811 Long term (current) use of aromatase inhibitors; Z79.82 Long term (current) use of aspirin; Z79.899 Other long term (current) drug therapy; Z80.51 Family history of malignant neoplasm of kidney; Z85.3 Personal history of malignant neoplasm of breast; Z90.12 Acquired absence of left breast and nipple; Z96.652 Presence of left artificial knee joint; Z83.2 Family history of diseases of the blood and blood-forming organs and certain disorders involving the immune mechanism; Z88.2 Allergy status to sulfonamides; Z87.440 Personal history of urinary (tract) infections; Z87.01 Personal history of pneumonia (recurrent); T39.31 Poisoning by, adverse effect of and underdosing of propionic acid derivatives; Z90.49 Acquired absence of other specified parts of digestive tract; M19.90 Unspecified osteoarthritis, unspecified site
CPT/HCPCS: 80048; 80061; 83036; 84484; 85730; 93005; 93306; 93458; 94640; 96365; 96366; 96376; 99285; C1874

== ENCOUNTER → 2019-10-12 | Outpatient (CLI) | payer MEDICARE ==
--- NOTE | 2019-10-12 14:31 | MM ---
Reason for exam: additional evaluation requested from prior study. Last mammogram was performed 1 year and 1 month ago. History: Patient is postmenopausal, has history of breast cancer at age 66, and is nulliparous. Family history of breast cancer in paternal aunt. Benign US biopsy breast VAD RT of the right breast, October 28, 2014. Mastectomy of the left breast, September 21, 2011. Saline implant in the left breast, 2011. Reduction of the right breast, 2011. Malignant u/S left breast localization of the left breast, August 20, 2011. Malignant u/S left breast localization additional of the left breast, August 20, 2011. Took estrogen for 5 years. Taking antineoplastic beginning at age 66. Physical Findings: Nurse did not find any significant physical abnormalities on exam. MG 3D Diag Mammo W/Cad RT CC and MLO view(s) were taken of the right breast. Prior study comparison: September 20, 2018, right breast MG 3d diag mammo w/cad RT. March 29, 2016, right breast MG 3d diag mammo w/cad RT. The breast tissue is heterogeneously dense. This may lower the sensitivity of mammography. Benign appearing calcifications in the right breast. No suspicious abnormality. No significant new findings when compared with previous films. These results were verbally communicated with the patient and result sheet given to the patient on 10/12/19. ASSESSMENT: Benign, BI-RAD 2 RECOMMENDATION: Follow-up diagnostic mammogram of the right breast in 1 year.
== END | disposition home or self-care (01) ==
LOC: RADMAMWWP 13:28
PROVIDERS: ATTEND Family Medicine
DX: R92.8 Other abnormal and inconclusive findings on diagnostic imaging of breast (principal)
CPT/HCPCS: 77065; G0279; 77061

== ENCOUNTER → 2020-05-05 | Outpatient (CLI) | payer MEDICARE | END | disposition home or self-care (01) | LOC: LABWHC1 12:16 | PROVIDERS: ATTEND Internal Medicine Cardiovascular Disease | DX: Z53.9 Procedure and treatment not carried out, unspecified reason (principal) ==

== ENCOUNTER → 2020-11-21 | Outpatient (CLI) | payer MEDICARE ==
[~2020-11-21] MED LIST: ATROPINE SULFATE 0.1 MG/ML 10ML SYRINGE ONE; DOBUTamine DRIP for NUC MED 500 MG in DEXTROSE/WATER 1 250ML.BAG IV PRN
[2020-11-21 08:40] LABS: Basophils # (A) 0.1 k/uL (0-0.2); Basophils % (A) 1 %; Eosinophils # (A) 0.4 k/uL (0-0.7); Eosinophils % (A) 5 %; HCT 43.6 % (34.0-46.0); HGB 14.9 gm/dL (11.4-16.0); Lymphocytes # (A) 2.2 k/uL (1.0-4.8); Lymphocytes % (A) 28 %; MCH 33.6 pg (25.0-35.0); MCHC 34.1 g/dL (31.0-37.0); MCV 98.6 fL (80.0-100.0); Mean Platelet Volume 8.2; Monocytes # (A) 0.4 k/uL (0-1.0); Monocytes % (A) 5 %; Neutrophils # (A) 4.7 k/uL (1.3-7.7); Neutrophils % (A) 60 %; Platelet Count 268 k/uL (150-450); RBC 4.43 m/uL (3.80-5.40); RDW 12.8 % (11.5-15.5); WBC 7.8 k/uL (3.8-10.6)
[2020-11-21 08:42] LABS: Calcium 9.8 mg/dL (8.4-10.2); Potassium 5.4 mmol/L (3.5-5.1)
[2020-11-21 11:51] LABS: Folate, Serum 6.6 ng/mL
--- NOTE | 2020-11-22 09:04 | ECHOS ---
STRESS ECHOCARDIOGRAM LUMASON: N/A Vial INDICATIONS: Dizziness. MEDICATIONS: BASELINE HEART RATE: 51 BASELINE BLOOD PRESSURE: 107/63 MAXIMUM HEART RATE: 133 MAXIMUM BLOOD PRESSURE: 159/50 85% MPHR: 123 100% MPHR: 145 METS: MAXIMUM STAGE REACHED: TOTAL EXERCISE TIME: 17:31 CLINICAL INFORMATION: Baseline rhythm is a sinus mechanism, rate of 51, normal axis and intervals, minor nonspecific ST-T wave changes. Baseline blood pressure 107/63 mmHg. Patient received an infusion of dobutamine per protocol as well as 0.5 mg of atropine. Peak rate 133 beats per minute which is equal to 92% of maximum predicted heart rate. Peak blood pressure 159/50 mmHg. Electrocardiograph monitoring revealed no evidence of diagnostic ischemic ST deviation. Baseline echocardiogram revealed normal wall motion. At peak infusion, there was normal wall motion augmentation with no hypokinesis or dyskinesis. CONCLUSION: 1. Nondiagnostic electrocardiograph response to dobutamine infusion secondary to baseline EKG abnormality. 2. Normal stress echocardiogram with no evidence of stress-induced ischemia. MMODL / IJN: [id number] /
== END ==
LOC: RADCTMAIN 07:51
PROVIDERS: ATTEND Family Medicine
DX: R42 Dizziness and giddiness (principal)
CPT/HCPCS: 84207; 80048; 84443; 82607; 82746; 85025; C8930; J1250; J0461; Q9950; 93351

== ENCOUNTER 2020-12-27 21:59 | Emergency (ER) | payer MEDICARE ==
--- NOTE | 2020-12-27 22:44 | ED ---
General Adult HPI - General Stated complaint: DEANGELO Time Seen by Provider: 12/27/20 22:05 - History of Present Illness Initial comments: This patient is a 75-year-old woman who complains of a constellation of symptoms that started after she received the Moderna vaccine on December 20. Patient states that she started to have congestion, nonproductive cough, body aches, diarrhea and chills. The triage complaint was entered as shortness of breath, but she s tates that she is not really feeling short of breath. Onset/Timin -: days(s) Consistency: constant Improves with: none Worsens with: none Associated Symptoms: cough, headaches Treatments Prior to Arrival: none - Related Data Home Medications Medication Instructions Recorded Confirmed Citalopram Hydrobromide [CeleXA] 20 mg PO DAILY 04/24/15 02/22/19 Letrozole 2.5 mg PO DAILY 04/24/15 02/22/19 Montelukast Sodium [Singulair] 10 mg PO DAILY 04/24/15 02/22/19 metFORMIN HCL [Glucophage] 500 mg PO AC-BID 04/24/15 02/22/19 Albuterol Inhaler (Mhu) [Ventolin 1 - 2 puff INHALATION RT-Q6H PRN 09/06/17 02/22/19 Hfa Inhaler (Mhu)] Omeprazole 20 mg PO DAILY PRN 09/06/17 02/22/19 lisinopriL [Zestril] 5 mg PO DAILY 09/06/17 02/22/19 Albuterol Nebulized [Ventolin 2.5 mg INHALATION RT-Q4H PRN 02/22/19 02/22/19 Nebulized] Aspirin EC [Ecotrin Low Dose] 81 mg PO DAILY 02/22/19 02/22/19 Atorvastatin Calcium [Lipitor] 10 mg PO HS 02/22/19 02/22/19 Ergocalciferol (Vitamin D2) 50,000 unit PO Q7D 02/22/19 02/22/19 [Drisdol (50,000 Iu)] Previous Rx's Medication Instructions Recorded Clopidogrel [Plavix] 75 mg PO DAILY #30 tab 02/24/19 Metoprolol Tartrate [Lopressor] 25 mg PO BID #60 tab 02/24/19 Allergies Allergy/AdvReac Type Severity Reaction Status Date / Time Sulfa (Sulfonamide Allergy Unknown Verified 02/22/19 09:20 Antibiotics) Childhood Review of Systems ROS Statement: Those systems with pertinent positive or pertinent negative responses have been documented in the HPI. ROS Other: All systems not noted in ROS Statement are negative. Constitutional: Reports: chills. Denies: fever, weakness Respiratory: Reports: cough, wheezes. Denies: dyspnea Cardiovascular: Denies: chest pain, palpitations, orthopnea, edema Gastrointestinal: Reports: diarrhea. Denies: abdominal pain, nausea, vomiting, constipation Genitourinary: Denies: dysuria, hematuria Musculoskeletal: Reports: myalgia. Denies: back pain Skin: Denies: rash Neurological: Reports: headache. Denies: weakness, numbness Past Medical History Past Medical History: Asthma, Cancer, COPD, Diabetes Mellitus, GERD/Reflux, Hyperlipidemia, Hypertension, Pneumonia, Renal Disease Additional Past Medical History / Comment(s): Bronchitis, NIDDM type II, neuropathy bilateral feet, L breast cancer with surgery, CKD thought d/t motrin but numbers are improving, ZANE-pt lost her CPap during a move, generalized arthritis, L carpal tunnel syndrome, UTIs, sinus problems-better since surgery. History of Any Multi-Drug Resistant Organisms: None Reported Past Surgical History: Adenoidectomy, Cholecystectomy, Orthopedic Surgery, Tonsillectomy Additional Past Surgical History / Comment(s): L breast biopsy, L mas tectomy/reconstructive surgery, total L knee arthroplasty, bilateral feet bunionectomies, colonoscopy. Past Anesthesia/Blood Transfusion Reactions: Previous Problems w/ Anesthesia, Motion Sickness Additional Past Anesthesia/Blood Transfusion Reaction / Comment(s): STATES DIFFICULT INTUBATION - STATES "SMALL THROAT". DIFFICULTY WAKING UP. Past Psychological History: No Psychological Hx Reported Additional Psychological History / Comment(s): Pt resides with adult grandchild. Pt uses no assistive device. She drives. She has a nebulizer. Past Alcohol Use History: Rare Past Drug Use History: None Reported - Past Family History Father Family Medical History: Renal Disease Additional Family Medical History / Comment(s): Father was born with one functioning kidney. He had a PR in his late 70s. Brother(s) Family Medical History: Cancer Additional Family Medical History / Comment(s): Kidney cancer Mother Family Medical History: Deep Vein Thrombosis (DVT) Additional Family Medical History / Comment(s): Mother lived to be 95 yrs old. General Exam General appearance: alert, in no apparent distress Head exam: Present: atraumatic, normocephalic Eye exam: Present: normal appearance. Absent: scleral icterus, conjunctival injection ENT exam: Present: normal oropharynx Neck exam: Present: normal inspection. Absent: tenderness, meningismus, full ROM Respiratory exam: Present: wheezes (There is a trace expiratory wheeze). Absent: respiratory distress, rales, rhonchi, stridor, accessory muscle use, decreased breath sounds Cardiovascular Exam: Present: regular rate, normal rhythm, normal heart sounds. Absent: systolic murmur, diastolic murmur, rubs, gallop GI/Abdominal exam: Present: soft. Absent: distended, tenderness, guarding, rebound, rigid, mass Extremities exam: Present: normal inspection, normal capillary refill. Absent: pedal edema, calf tenderness Back exam: Present: normal inspection. Absent: CVA tenderness (R), CVA tenderness (L) Neurological exam: Present: alert Skin exam: Present: warm, dry, intact, normal color. Absent: rash Course Vital Signs 12/27/20 12/27/20 12/28/20 22:00 23:30 00:01 Temperature 98.5 F Pulse Rate 75 78 74 Respiratory 17 17 17 Rate Blood Pressure 131/78 O2 Sat by Pulse 97 97 97 Oximetry 12/28/20 01:06 Temperature Pulse Rate 54 L Respiratory 16 Rate Blood Pressure 130/75 O2 Sat by Pulse 98 Oximetry EKG Findings - EKG Results: EKG: interpreted by ERMD, sinus rhythm, normal axis, normal QRS, normal ST/T EKG shows: bradycardia (54 bpm) - Blocks, [place], Hypertrophy, ST Abn: AV and intraventricular conduction: 1 AV block Medical Decision Making - Lab Data Result diagrams: 12/27/20 23:28 12/27/20 23:28 Lab Results 12/27/20 12/27/20 12/27/20 Range/Units 23:28 23:28 23:28 WBC 6.2 (3.8-10.6) k/uL RBC 4.35 (3.80-5.40) m/uL Hgb 14.5 (11.4-16.0) gm/dL Hct 40.8 (34.0-46.0) % MCV 94.0 (80.0-100.0) fL MCH 33.4 (25.0-35.0) pg MCHC 35.6 (31.0-37.0) g/dL RDW 12.5 (11.5-15.5) % Plt Count 208 (150-450) k/uL MPV 8.1 Neutrophils % 73 % Lymphocytes % 19 % Monocytes % 6 % Eosinophils % 0 % Basophils % 1 % Neutrophils # 4.5 (1.3-7.7) k/uL Lymphocytes # 1.2 (1.0-4.8) k/uL Monocytes # 0.3 (0-1.0) k/uL Eosinophils # 0.0 (0-0.7) k/uL Basophils # 0.0 (0-0.2) k/uL D-Dimer 0.68 H (<0.60) mg/L FEU Sodium 131 L (137-145) mmol/L Potassium 4.5 (3.5-5.1) mmol/L Chloride 98 (98-107) mmol/L Carbon Dioxide 25 (22-30) mmol/L Anion Gap 8 mmol/L BUN 14 (7-17) mg/dL Creatinine 1.04 (0.52-1.04) mg/dL Est GFR (CKD-EPI)AfAm 61 (>60 ml/min/1.73 sqM) Est GFR (CKD-EPI)NonAf 53 (>60 ml/min/1.73 sqM) Glucose 126 H (74-99) mg/dL Calcium 9.2 (8.4-10.2) mg/dL Total Bilirubin 0.5 (0.2-1.3) mg/dL AST 35 (14-36) U/L ALT 23 (4-34) U/L Alkaline Phosphatase 119 (38-126) U/L C-Reactive Protein 2.6 H (<1.0) mg/dL Total Protein 6.5 (6.3-8.2) g/dL Albumin 3.7 (3.5-5.0) g/dL Coronavirus (PCR) (Not Detectd) 12/28/20 Range/Units 01:50 WBC (3.8-10.6) k/uL RBC (3.80-5.40) m/uL Hgb (11.4-16.0) gm/dL Hct (34.0-46.0) % MCV (80.0-100.0) fL MCH (25.0-35.0) pg MCHC (31.0-37.0) g/dL RDW (11.5-15.5) % Plt Count (150-450) k/uL MPV Neutrophils % % Lymphocytes % % Monocytes % % Eosinophils % % Basophils % % Neutrophils # (1.3-7.7) k/uL Lymphocytes # (1.0-4.8) k/uL Monocytes # (0-1.0) k/uL Eosinophils # (0-0.7) k/uL Basophils # (0-0.2) k/uL D-Dimer (<0.60) mg/L FEU Sodium (137-145) mmol/L Potassium (3.5-5.1) mmol/L Chloride (98-107) mmol/L Carbon Dioxide (22-30) mmol/L Anion Gap mmol/L BUN (7-17) mg/dL Creatinine (0.52-1.04) mg/dL Est GFR (CKD-EPI)AfAm (>60 ml/min/1.73 sqM) Est GFR (CKD-EPI)NonAf (>60 ml/min/1.73 sqM) Glucose (74-99) mg/dL Calcium (8.4-10.2) mg/dL Total Bilirubin (0.2-1.3) mg/dL AST (14-36) U/L ALT (4-34) U/L Alkaline Phosphatase (38-126) U/L C-Reactive Protein (<1.0) mg/dL Total Protein (6.3-8.2) g/dL Albumin (3.5-5.0) g/dL Coronavirus (PCR) Detected A (Not Detectd) Disposition Clinical Impression: COVID-19 Disposition: HOME SELF-CARE Condition: Good Instructions (If sedation given, give patient instructions): Coronavirus Disease 2019 (COVID-19) Is patient prescribed a controlled substance at d/c from ED?: No Referrals: Jonathon Garcia [Primary Care Provider] - 1-2 days
[2020-12-27 23:46] LABS: Basophils % (A) 1 %; Eosinophils % (A) 0 %; HCT 40.8 % (34.0-46.0); HGB 14.5 gm/dL (11.4-16.0); Lymphocytes # (A) 1.2 k/uL (1.0-4.8); Lymphocytes % (A) 19 %; MCH 33.4 pg (25.0-35.0); MCHC 35.6 g/dL (31.0-37.0); Mean Platelet Volume 8.1; Monocytes # (A) 0.3 k/uL (0-1.0); Monocytes % (A) 6 %; Neutrophils # (A) 4.5 k/uL (1.3-7.7); Neutrophils % (A) 73 %; Platelet Count 208 k/uL (150-450); RBC 4.35 m/uL (3.80-5.40); RDW 12.5 % (11.5-15.5); WBC 6.2 k/uL (3.8-10.6)
[2020-12-28 00:02] LABS: Albumin 3.7 g/dL (3.5-5.0); C Reactive Protein 2.6 mg/dL (<1.0); Calcium 9.2 mg/dL (8.4-10.2); Potassium 4.5 mmol/L (3.5-5.1); Total Bilirubin 0.5 mg/dL (0.2-1.3); Total Protein 6.5 g/dL (6.3-8.2)
--- NOTE | 2020-12-28 00:24 | XR ---
EXAMINATION TYPE: XR chest 1V portable DATE OF EXAM: 12/28/2020 COMPARISON: 02/21/2019 HISTORY: Cough TECHNIQUE: Single view FINDINGS: There is no heart failure nor confluent pneumonic infiltrate. There is increased density ov er the left lower lung field thought to be due to left side breast implant. There are no hilar masses . There are chest leads. IMPRESSION: No active cardiopulmonary disease. No adverse change.
[2020-12-28] MEDS ORDERED: IBUPROFEN 600 MG TAB PO STA (01:27)
[2020-12-28] MEDS ORDERED: ACETAMINOPHEN TAB 325 MG TAB PO STA (01:27)
[2020-12-28] MEDS ORDERED: BAMLANIVIMAB (EUA) 700 MG, ETESEVIMAB (EUA) 1,400 MG in SODIUM CHLORIDE 0.9% 50 ML IVPB ONE (03:00)
[2020-12-28 05:14] VITALS: BP 113/74; PULSE 54; RESP 20; TEMP 98.2
== END 2020-12-28 04:35 | disposition home or self-care (01) ==
LOC: EC 21:59
DX: U07.1 COVID-19 (principal); E11.22 Type 2 diabetes mellitus with diabetic chronic kidney disease; I12.9 Hypertensive chronic kidney disease with stage 1 through stage 4 chronic kidney disease, or unspecified chronic kidney disease; N18.9 Chronic kidney disease, unspecified; E78.5 Hyperlipidemia, unspecified; G47.33 Obstructive sleep apnea (adult) (pediatric); J44.9 Chronic obstructive pulmonary disease, unspecified; K21.9 Gastro-esophageal reflux disease without esophagitis; Z79.82 Long term (current) use of aspirin; Z79.84 Long term (current) use of oral hypoglycemic drugs; Z79.899 Other long term (current) drug therapy; Z88.2 Allergy status to sulfonamides; Z85.3 Personal history of malignant neoplasm of breast; Z90.12 Acquired absence of left breast and nipple; Z96.652 Presence of left artificial knee joint
CPT/HCPCS: 36415; 93005; 85379; 80053; 85025; 86140; 87635; 71045; 99285; 96365; U0003; U0005; Q0245

== ENCOUNTER 2023-01-07 21:46 | Inpatient (IN) | payer MEDICARE ==
[2023-01-07 22:39] LABS: Basophils % (A) 0 %; Eosinophils # (A) 0.7 k/uL (0-0.7); Eosinophils % (A) 9 %; HCT 41.6 % (34.0-46.0); HGB 14.3 gm/dL (11.4-16.0); Lymphocytes # (A) 2.4 k/uL (1.0-4.8); Lymphocytes % (A) 29 %; MCH 33.5 pg (25.0-35.0); MCHC 34.5 g/dL (31.0-37.0); MCV 97.1 fL (80.0-100.0); Mean Platelet Volume 8.8; Monocytes # (A) 0.5 k/uL (0-1.0); Monocytes % (A) 6 %; Neutrophils # (A) 4.4 k/uL (1.3-7.7); Neutrophils % (A) 54 %; Platelet Count 294 k/uL (150-450); RBC 4.28 m/uL (3.80-5.40); RDW 14.6 % (11.5-15.5); WBC 8.2 k/uL (3.8-10.6)
--- NOTE | 2023-01-07 22:39 | ED ---
Chest Pain HPI - General Chief Complaint: Chest Pain Stated Complaint: Chest Pain Time Seen by Provider: 01/07/23 21:57 Source: patient Mode of arrival: ambulatory Limitations: no limitations - History of Present Illness Initial Comments: This patient is a 77-year-old woman who presents to be evaluated for chest pains that are been going on approximately 3 days now. She states that the pain has been intermittent, though today's pain was more constant since the morning. She describes the pain as being a heaviness, moderate intensity. She had not noted worsening or relieving factors. She states that currently there are no symptoms. She had no accompanying symptoms. MD Complaint: chest pain Onset/Timin -: days(s) Onset: during rest Pain Location: substernal, left chest Pain Radiation: none Severity: moderate Quality: heaviness Consistency: intermittent, now resolved Improves With: nothing Worsens With: nothing Treatments Prior to Arrival: none - Related Data Home Medications Medication Instructions Recorded Confirmed Citalopram Hydrobromide [CeleXA] 20 mg PO DAILY 04/24/15 01/12/23 Montelukast Sodium [Singulair] 10 mg PO DAILY 04/24/15 01/12/23 Albuterol Inhaler [Ventolin Hfa 1 - 2 puff INHALATION RT-Q6H PRN 09/06/17 01/12/23 Inhaler] Omeprazole 20 mg PO DAILY 09/06/17 01/12/23 Atorvastatin Calcium 20 mg PO HS 01/07/23 01/12/23 Nystatin 100,000 Unit/gm Powd 1 applic TOPICAL BID 01/07/23 01/12/23 [Mycostatin Powder] lisinopriL [Zestril] 20 mg PO DAILY 01/07/23 01/12/23 Previous Rx's Medication Instructions Recorded Clopidogrel [Plavix] 75 mg PO DAILY #30 tab 01/09/23 metFORMIN HCL 1,000 mg PO BID #0 01/09/23 Apixaban [Eliquis Starter Pack 5 - 10 mg PO DIRECTED 30 Days 01/13/23 (for VTE)] #1 each Allergies Allergy/AdvReac Type Severity Reaction Status Date / Time Sulfa (Sulfonamide Allergy Unknown Verified 01/12/23 18:04 Antibiotics) Childhood Review of Systems ROS Statement: Those systems with pertinent positive or pertinent negative responses have been documented in the HPI. ROS Other: All systems not noted in ROS Statement are negative. EKG Findings - EKG Results: EKG: interpreted by ERMD, sinus rhythm (Rate 73 bpm) - Blocks, [place], Hypertrophy, ST Abn: AV and intraventricular conduction: right bundle branch block (fixed/intermittent, complete/incomplete) (Incomplete) Past Medical History Past Medical History: Asthma, Cancer, COPD, Diabetes Mellitus, GERD/Reflux, Hyperlipidemia, Hypertension, Pneumonia, Renal Disease Additional Past Medical History / Comment(s): Bronchitis, NIDDM type II, neuropathy bilateral feet, L breast cancer with surgery, CKD thought d/t motrin but numbers are improving, ZANE-pt lost her CPap during a move, generalized arthritis, L carpal tunnel syndrome, UTIs, sinus problems-better since surgery. History of Any Multi-Drug Resistant Organisms: None Reported Past Surgical History: Adenoidectomy, Cholecystectomy, Orthopedic Surgery, Tonsillectomy Additional Past Surgical History / Comment(s): L breast biopsy, L mastecto my/reconstructive surgery, total L knee arthroplasty, bilateral feet bunionectomies, colonoscopy. Past Anesthesia/Blood Transfusion Reactions: Previous Problems w/ Anesthesia, Motion Sickness Additional Past Anesthesia/Blood Transfusion Reaction / Comment(s): STATES DIFFICULT INTUBATION - STATES "SMALL THROAT". DIFFICULTY WAKING UP. Past Psychological History: No Psychological Hx Reported Past Alcohol Use History: Rare Past Drug Use History: None Reported - Past Family History Father Family Medical History: Renal Disease Additional Family Medical History / Comment(s): Father was born with one functioning kidney. He had a OR in his late 70s. Brother(s) Family Medical History: Cancer Additional Family Medical History / Comment(s): Kidney cancer Mother Family Medical History: Deep Vein Thrombosis (DVT) Additional Family Medical History / Comment(s): Mother lived to be 95 yrs old. General Exam Limitations: no limitations General appearance: alert, in no apparent distress Head exam: Present: atraumatic, normocephalic Eye exam: Present: normal appearance. Absent: scleral icterus, conjunctival injection Neck exam: Present: normal inspection Respiratory exam: Present: normal lung sounds bilaterally. Absent: respiratory distress, wheezes, rales, rhonchi, stridor Cardiovascular Exam: Present: regular rate, normal rhythm, normal heart sounds. Absent: systolic murmur, diastolic murmur, rubs, gallop GI/Abdominal exam: Present: soft. Absent: distended, tenderness, guarding, rebound, rigid, mass Extremities exam: Present: normal inspection, normal capillary refill. Absent: pedal edema, calf tenderness Back exam: Present: normal inspection. Absent: CVA tenderness (R), CVA tenderness (L) Neurological exam: Present: alert Skin exam: Present: warm, dry, intact, normal color. Absent: rash Course Vital Signs 01/07/23 01/07/23 01/08/23 21:51 22:00 00:00 Temperature 98.4 F Pulse Rate 81 76 76 Respiratory 20 16 18 Rate Blood Pressure 156/96 134/86 O2 Sat by Pulse 97 98 97 Oximetry Chest Pain MDM - MDM The patient had 2 view chest x-ray which I interpreted as being negative for pneumothorax, infiltrate, or congestive heart failure. Was pt. sent in by a medical professional or institution (, PA, FUNNEL SETTER, urgent care, hospital, or fdc...) When possible be specific @ -[No] Did you speak to anyone other than the patient for history (EMS, parent, family, police, friend...)? What history was obtained from this source @ -[No] Did you review nursing and triage notes (agree or disagree)? Why? @ -[I reviewed and agree with nursing and triage notes] Were old charts reviewed (outside hosp., previous admission, EMS record, old EKG, old radiological studies, urgent care reports/EKG's, fdc records)? Report findings @ -[No old charts were reviewed] Differential Diagnosis (chest pain, altered mental status, abdominal pain women, abdominal pain men, vaginal bleeding, weakness, fever, dyspnea, syncope, headache, dizziness, GI bleed, back pain, seizure, CVA, palpatations, mental health, musculoskeletal)? @ -[Differential Chest Pain: Stable Angina, Unstable Angina, STEMI, NSTEMI Aortic Dissection, Pneumothorax, Musculoskeletal, Esophageal Spasm GERD, Cholecystitis, Pancreatitis, Zoster, this is not meant to be an all-inclusive list. EKG interpreted by me (3pts min.). @ -[As above] X-rays interpreted by me (1pt min.). @ -[As above CT interpreted by me (1pt min.). @ -[None done] U/S interpreted by me (1pt. min.). @ -[None done] What testing was considered but not performed or refused? (CT, X-rays, U/S, labs)? Why? @ -[None] What meds were considered but not given or refused? Why? @ -[None] Did you discuss the management of the patient with other professionals (professionals i.e. , PA, FUNNEL SETTER, lab, RT, psych nurse, high school social studies teacher, supervisor heat treating, teacher, loan officer, immigration case worker)? Give summary @ -[Admitting physician Was smoking cessation discussed for >3mins.? @ -[No] Was critical care preformed (if so, how long)? @ -[Yes, 30 minutes Were there social determinants of health that impacted care today? How? (Homelessness, low income, unemployed, alcoholism, drug addiction, transportation, low edu. Level, literacy, decrease access to med. care, assisted, rehab)? @ -[No] Was there de-escalation of care discussed even if they declined (Discuss DNR or withdrawal of care, Hospice)? DNR status @ -[No] What co-morbidities impacted this encounter? (DM, HTN, Smoking, COPD, CAD, Cancer, CVA, ARF, Chemo, Hep., AIDS, mental health diagnosis, sleep apnea, morbid obesity)? @ -[None] Was patient admitted / discharged? Hospital course, mention meds given and route, prescriptions, significant lab abnormalities, going to OR and other pertinent info. @ -[Patient is admitted for serial cardiac enzymes, cardiology consultation and further treatment for NSTEMI Undiagnosed new problem with uncertain prognosis? @ -[No] Drug Therapy requiring intensive monitoring for toxicity (Heparin, Nitro, Insulin, Cardizem)? @ -[Heparin Were any procedures done? @ -[No] Diagnosis/symptom? @ -[Acute NSTEMI Acute, or Chronic, or Acute on Chronic? @ -[default] Uncomplicated (without systemic symptoms) or Complicated (systemic symptoms)? @ -Uncomplicated Side effects of treatment? @ -[No] Exacerbation, Progression, or Severe Exacerbation? @ -[No] Poses a threat to life or bodily function? How? (Chest pain, [place], OR, pneumonia, PE, COPD, DKA, ARF, appy, cholecystitis, CVA, Diverticulitis, Homicidal, Suicidal, threat to staff... and all critical care pts) @ -[Yes, untreated and STEMI can progress Critical Care Time Critical Care Time: Yes (30 minutes) Disposition Clinical Impression: NSTEMI (non-ST elevated myocardial infarction), Chest pain, Hyperglycemia Disposition: ADMITTED IP TO THIS HOSP Condition: Fair Is patient prescribed a controlled substance at d/c from ED?: No
--- NOTE | 2023-01-07 22:41 | XR ---
EXAMINATION TYPE: XR chest 2V DATE OF EXAM: 01/07/2023 10:32 PM COMPARISON: Chest radiographs from 12/28/2020 TECHNIQUE: XR chest 2V Frontal and lateral views of the chest. CLINICAL INDICATION:Female, 77 years old with history of Chest Pain; FINDINGS: Lungs/Pleura: There is no evidence of pleural effusion, focal consolidation, or pneumothorax. Pulmonary vascularity: Unremarkable. Heart/mediastinum: Cardiomediastinal silhouette is unremarkable. Musculoskeletal: No acute osseous pathology. IMPRESSION: No acute cardiopulmonary disease/process.
[2023-01-07 22:48] LABS: Albumin 3.9 g/dL (3.5-5.0); Calcium 9.4 mg/dL (8.4-10.2); Magnesium 1.5 mg/dL (1.6-2.3); Potassium 3.8 mmol/L (3.5-5.1); Total Bilirubin 0.8 mg/dL (0.2-1.3); Total Protein 6.8 g/dL (6.3-8.2)
[2023-01-07 23:17] LABS: INR 0.9 (<1.2); Partial Thromboplastin Time 22.7 sec (22.0-30.0); Prothrombin Time 9.9 sec (9.0-12.0)
[2023-01-07] MEDS ORDERED: HEPARIN SODIUM 1,000 UN/ML (10ML VL) IV ONE (23:46)
[2023-01-07] MEDS ORDERED: ASPIRIN 81 MG PO STA (23:46)
[2023-01-07] MEDS ORDERED: NITROGLYCERIN SL TABS 0.4 MG TAB SUBLINGUAL PRN (23:46)
[2023-01-08] MEDS: HEPARIN SOD,PORK IN 0.45% NACL 25,000 UNIT in 0.45% NACL 1 250ML.BAG IV SCH ×2 (00:02→22:39)
[2023-01-08 01:51] VITALS: RESP 16
[2023-01-08] MEDS ORDERED: ALBUTEROL NEBULIZED 2.5 MG/3 ML INHALATION PRN (01:53)
--- NOTE | 2023-01-08 02:06 | P.HPIM ---
History of Present Illness H&P Date: 01/08/23 Chief Complaint: chest pain 77 year old female with DM , hypertension , COPD patient coming in for chest pain that strated sudenly while resting about 3 days ago, comes and goes, however, today after dinner, she felt left sided chest pain , sharp in nature, 5-8/10 in severity , with some SOB, but denies any profuse sweating, nausea , vomiting, or dizziness. she was doing nothing when it started , she grew concerned and decided to come in for evaluation. she also reports history of acid reflux , but denies any epigastric pain at this time . denies any changes in bowel habits, or GI bleeding . denies any URI symptoms , cough, fever, or chills. denies any tobacco smoking, illicit drugs or alcohol Review of Systems Pertinent positives as noted in HPI. All other systems were reviewed and are negative Past Medical History Past Medical History: Asthma, Cancer, COPD, Diabetes Mellitus, GERD/Reflux, Hyperlipidemia, Hypertension, Pneumonia, Renal Disease Additional Past Medical History / Comment(s): Bronchitis, NIDDM type II, neuropathy bilateral feet, L breast cancer with surgery, CKD thought d/t motrin but numbers are improving, ZANE-pt lost her CPap during a move, generalized arthritis, L carpal tunnel syndrome, UTIs, sinus problems-better since surgery. History of Any Multi-Drug Resistant Organisms: None Reported Past Surgical History: Adenoidectomy, Cholecystectomy, Orthopedic Surgery, Tonsillectomy Additional Past Surgical History / Comment(s): L breast biopsy, L mastectomy/r econstructive surgery, total L knee arthroplasty, bilateral feet bunionectomies, colonoscopy. Past Anesthesia/Blood Transfusion Reactions: Previous Problems w/ Anesthesia, Motion Sickness Additional Past Anesthesia/Blood Transfusion Reaction / Comment(s): STATES DIFFICULT INTUBATION - STATES "SMALL THROAT". DIFFICULTY WAKING UP. Past Psychological History: No Psychological Hx Reported Additional Psychological History / Comment(s): Pt resides with adult grandchild. Pt uses no assistive device. She drives. She has a nebulizer. Smoking Status: Never smoker Past Alcohol Use History: Rare Past Drug Use History: None Reported - Past Family History Father Family Medical History: Renal Disease Additional Family Medical History / Comment(s): Father was born with one functioning kidney. He had a OK in his late 70s. Brother(s) Family Medical History: Cancer Additional Family Medical History / Comment(s): Kidney cancer Mother Family Medical History: Deep Vein Thrombosis (DVT) Additional Family Medical History / Comment(s): Mother lived to be 95 yrs old. Medications and Allergies Home Medications Medication Instructions Recorded Confirmed Type Citalopram Hydrobromide [CeleXA] 20 mg PO DAILY 04/24/15 01/07/23 History Montelukast Sodium [Singulair] 10 mg PO DAILY 04/24/15 01/07/23 History Albuterol Inhaler [Ventolin Hfa 1 - 2 puff INHALATION RT-Q6H PRN 09/06/17 History Inhaler] Omeprazole 20 mg PO DAILY 09/06/17 01/07/23 History Aspirin EC [Ecotrin Low Dose] 81 mg PO DAILY 02/22/19 01/07/23 History Atorvastatin Calcium 20 mg PO HS 01/07/23 01/07/23 History Nystatin 100,000 Unit/gm Powd 1 applic TOPICAL BID 01/07/23 01/07/23 History [Mycostatin Powder] lisinopriL [Zestril] 20 mg PO DAILY 01/07/23 01/07/23 History metFORMIN HCL 1,000 mg PO BID 01/07/23 01/07/23 History Allergies Allergy/AdvReac Type Severity Reaction Status Date / Time Sulfa (Sulfonamide Allergy Unknown Verified 01/07/23 22:31 Antibiotics) Childhood Physical Exam Vitals: Vital Signs Temp Pulse Resp BP BP Pulse Ox 01/08/23 00:30 97.9 F 16 162/80 97 01/08/23 00:00 76 18 134/86 97 01/07/23 22:00 76 16 156/96 98 01/07/23 21:51 98.4 F 81 20 97 Intake and Output 01/07/23 01/07/23 01/08/23 14:59 22:59 06:59 Other: Voiding Method Toilet Weight 77.111 kg 77.111 kg Constitutional: No acute distress, conversant, pleasant Eyes: Anicteric sclerae, moist conjunctiva, Pupils equal round reactive to light ENMT: NC/AT Oropharynx clear, no erythema, or exudates Neck: Supple, no masses, or JVD No carotid bruits No thyromegaly Lungs: Clear to auscultation Clear to percussion Normal respiratory effort, no accessory muscle use Cardiovascular: Heart regular in rate and rhythm, No murmurs, gallops, or rubs No peripheral edema Abdominal: Soft No tenderness to deep palpation no guarding, rebound or rigidity Abdomen moving with respiration Normoactive bowel sounds No hepatomegaly, No splenomegaly No palpable mass No abdominal wall hernia noted Skin: Normal temperature, tone, texture, turgor No induration No subcutaneous nodules No rash, lesions No ulcers Extremities: No digital cyanosis No clubbing Pedal pulses intact and symmetrical Radial pulses intact and symmetrical No calf tenderness Psychiatric: Alert and oriented to person, place and time Appropriate affect fair judgment Neuro Muscles Strength 5/5 in all 4 extremities Sensation to light touch grossly present throughout Cranial nerves II-XII grossly intact Lymphatics: no palpable cervical or supraclavicular lymph nodes Results CBC & Chem 7: 01/07/23 22:10 01/07/23 22:10 Labs: Abnormal Lab Results - Last 24 Hours (Table) 01/07/23 01/07/23 Range/Units 22:10 22:10 Glucose 210 H (74-99) mg/dL Magnesium 1.5 L (1.6-2.3) mg/dL Alkaline Phosphatase 136 H (38-126) U/L Troponin I 0.099 H* (0.000-0.034) ng/mL Assessment and Plan Assessment: 77 year old female with DM , hypertension , coming in for chest pain, I discussed the case with ED doc, trops elevated, I accepted the admission for NSTEMI for further cardiac workup and cardiology evaluation with anticipated length of stay > 2 midnight NSTEMI heparin gtt Aspirin , statin fnps monitor vital signs nitro and EKG prn for chest pain cardiology evaluation EKG no acute ST changes elevated trops , continue to trend hypomagnesemia replace MG IVPB follow up levels DM insulin sliding scale GERD PPI daily COPD , compensated PRN albuterol full code DVT PPX on heparin gtt for ACS
[2023-01-08] MEDS: MAGNESIUM SULFATE-D5W PMX 1 GM in DEXTROSE/WATER 1 100ML.BAG IVPB SCH ×2 (03:28→04:55)
[2023-01-08 04:50] LABS: Mean Platelet Volume 8.7; Platelet Count 225 k/uL (150-450)
[2023-01-08 05:15] LABS: Magnesium 2.1 mg/dL (1.6-2.3)
[2023-01-08 06:12] LABS: Glucose,Whole Blood 144 mg/dL (70-110)
[2023-01-08] MEDS ORDERED: HEPARIN SODIUM,PORCINE 10,000 UNIT in SODIUM CHLORIDE 0.9% 1,000 ML IRRIGATION PRN (07:00)
[2023-01-08] MEDS ORDERED: HEPARIN SODIUM,PORCINE 2,500 UNIT in SODIUM CHLORIDE 0.9% 250 ML IRRIGATION PRN (07:00)
[2023-01-08] MEDS: MONTELUKAST 10 MG TAB PO SCH (08:26)
[2023-01-08] MEDS: lisinopriL 20 MG TAB PO SCH (08:26)
[2023-01-08] MEDS: PANTOPRAZOLE 40 MG TABLET PO SCH (08:26)
[2023-01-08] MEDS: CITALOPRAM HYDROBROMIDE 20 MG TAB PO SCH (08:27)
[2023-01-08] MEDS: ASPIRIN 325 MG TAB PO SCH (08:27)
[2023-01-08] MEDS ORDERED: ATORVASTATIN 80 MG TAB PO STA (09:12)
[2023-01-08] MEDS ORDERED: NITROGLYCERIN SL TABS 0.4 MG TAB SUBLINGUAL PRN (09:12)
[2023-01-08] MEDS ORDERED: ASPIRIN 325 MG TAB PO STA (09:12)
[2023-01-08] MEDS ORDERED: ALPRAZolam 0.5 MG TAB PO PRN (09:12)
[2023-01-08] MEDS ORDERED: ALPRAZolam 0.25 MG TAB PO PRN (09:12)
[2023-01-08 11:30] LABS: Glucose,Whole Blood 136 mg/dL (70-110)
--- NOTE | 2023-01-08 12:36 | P.CRDCN ---
History of Present Illness Consult date: 01/08/23 Consult reason: chest pain, other (elevated troponin) History of present illness: History of present illness: Patient is a pleasant 77-year-old female with significant past medical history, diabetes, hypertension, COPD, asthma, CAD status post PCI to the mid LAD 02/2019 who presented with complaints of chest pain. She reports that she has been having chest pain for the last several days, this got worse last night and she came to the emergency department. She has not followed with a regional operations director since [address] Francois. She reports that the chest pain occurs randomly, nothing makes it better or worse however it appears to have been constant over the past few days. She was just sitting reading last night when the pain intensified. Denies any diaphoresis. She also had no appetite last night. She is always short of breath and relates this to her asthma. She does report that this feels similar to when she had her stents placed in the past however less severe. Family reports that she has been more fatigued over the past couple weeks. Troponin elevated 0.099, 0.096, 0.111. EKG shows sinus rhythm with incomplete right bundle branch block. Chest x-ray shows no acute findings. Labs reviewed: WBC 8.2, hemoglobin 14.3, platelets 294, creatinine 0.99. Echo from 2019 with ejection fraction 4045%. She was started on a heparin drip. She denies any chest pain overnight, describes her breathing has been stable at her baseline. REVIEW OF SYSTEMS: No fever or chills. No cough or expectoration. Reports shortness of breath. No diaphoresis. Patient denies headache, dizziness, blurred vision, double vision. Patient denies any stomach discomfort. No nausea, vomiting. Reports decreased appitite. No hematochezia. No hematemesis. Denies any black stools or blood in his stools. Denies dysuria or hematuria. No muscle weakness or numbness. No chest pain or pressure. PHYSICAL EXAMINATION: This is a 77-year-old female in no apparent distress at the time of my examination. HEENT: Head is atraumatic, normocephalic. Pupils are equal, round. Sclerae anicteric. Conjunctivae are clear. Mucous membranes of the mouth are moist. Neck is supple. There is no jugular venous distention. No carotid bruit is heard. CHEST EXAMINATION: Lungs are clear to auscultation. No chest wall tenderness is noted on palpation or with deep breathing. HEART EXAMINATION: Heart regular rate and rhythm. S1, S2 heard. No murmurs, gall ops or rub. ABDOMEN: Soft, nontender. Bowel sounds are heard. EXTREMITIES: 2+ peripheral pulses with no evidence of peripheral edema and no calf tenderness noted. NEUROLOGIC EXAMINATION: Patient is awake, alert and oriented x3. IMPRESSION AND PLAN: NSTEMI Elevated troponin Chest pain CAD status post PCI mid LAD 02/2019 Hypertension COPD Asthma Diabetes PLAN: We will check echocardiogram to evaluate heart function and structure. Given abnormal troponin and chest pain similar to prior stenting we'll plan to proceed with heart catheterization to rule out blockage. Benefits of procedures discussed with patient, she agrees to proceed. Continue heparin drip for now. Nothing by mouth. Monitor blood pressure, may need to increase medications. Further recommendations post catheterization. I am dictating on behalf of Dr. Rajiv Marie's history/physical and assessment/plan. Past Medical History Past Medical History: Asthma, Cancer, COPD, Diabetes Mellitus, GERD/Reflux, Hyperlipidemia, Hypertension, Pneumonia, Renal Disease Additional Past Medical History / Comment(s): Bronchitis, NIDDM type II, neuropathy bilateral feet, L breast cancer with surgery, CKD thought d/t motrin but numbers are improving, ZANE-pt lost her CPap during a move, generalized arthritis, L carpal tunnel syndrome, UTIs, sinus problems-better since surgery. History of Any Multi-Drug Resistant Organisms: None Reported Past Surgical History: Adenoidectomy, Cholecystectomy, Orthopedic Surgery, Tonsillectomy Additional Past Surgical History / Comment(s): L breast biopsy, L mastectomy/reconstructive surgery, total L knee arthroplasty, bilateral feet bunionectomies, colonoscopy. Past Anesthesia/Blood Transfusion Reactions: Previous Problems w/ Anesthesia, Motion Sickness Additional Past Anesthesia/Blood Transfusion Reaction / Comment(s): STATES DIFFICULT INTUBATION - STATES "SMALL THROAT". DIFFICULTY WAKING UP. Past Psychological History: No Psychological Hx Reported Additional Psychological History / Comment(s): Pt resides with adult grandchild. Pt uses no assistive device. She drives. She has a nebulizer. Smoking Status: Never smoker Past Alcohol Use History: Rare Past Drug Use History: None Reported - Past Family History Father Family Medical History: Renal Disease Additional Family Medical History / Comment(s): Father was born with one functioning kidney. He had a AR in his late 70s. Brother(s) Family Medical History: Cancer Additional Family Medical History / Comment(s): Kidney cancer Mother Family Medical History: Deep Vein Thrombosis (DVT) Additional Family Medical History / Comment(s): Mother lived to be 95 yrs old. Medications and Allergies Home Medications Medication Instructions Recorded Confirmed Type Citalopram Hydrobromide [CeleXA] 20 mg PO DAILY 04/24/15 01/07/23 History Montelukast Sodium [Singulair] 10 mg PO DAILY 04/24/15 01/07/23 History Albuterol Inhaler [Ventolin Hfa 1 - 2 puff INHALATION RT-Q6H PRN 09/06/17 01/07/23 History Inhaler] Omeprazole 20 mg PO DAILY 09/06/17 01/07/23 History Aspirin EC [Ecotrin Low Dose] 81 mg PO DAILY 02/22/19 01/07/23 History Atorvastatin Calcium 20 mg PO HS 01/07/23 01/07/23 History Nystatin 100,000 Unit/gm Powd 1 applic TOPICAL BID 01/07/23 01/07/23 History [Mycostatin Powder] lisinopriL [Zestril] 20 mg PO DAILY 01/07/23 01/07/23 History metFORMIN HCL 1,000 mg PO BID 01/07/23 01/07/23 History Allergies Allergy/AdvReac Type Severity Reaction Status Date / Time Sulfa (Sulfonamide Allergy Unknown Verified 01/07/23 22:31 Antibiotics) Childhood Physical Exam Vitals: Vital Signs Temp Pulse Pulse Resp BP BP Pulse Ox 01/08/23 08:00 58 L 16 163/77 96 01/08/23 04:00 66 16 160/74 97 01/08/23 00:30 97.9 F 69 16 162/80 97 01/08/23 00:00 76 18 134/86 97 01/07/23 22:00 76 16 156/96 98 01/07/23 21:51 98.4 F 81 20 97 Intake and Output 01/07/23 01/08/23 01/08/23 22:59 06:59 14:59 Other: Voiding Method Toilet # Voids 1 Weight 77.111 kg 77.111 kg Results 01/08/23 04:24 04/28/23 22:10 Cardiac Enzymes 01/07/23 01/07/23 01/08/23 Range/Units 22:10 22:10 00:37 AST 35 (14-36) U/L Troponin I 0.099 H* 0.096 H* (0.000-0.034) ng/mL 01/08/23 Range/Units 04:24 AST (14-36) U/L Troponin I 0.111 H* (0.000-0.034) ng/mL Coagulation 01/07/23 01/08/23 Range/Units 22:10 05:27 PT 9.9 (9.0-12.0) sec APTT 22.7 163.0 H* (22.0-30.0) sec CBC 01/07/23 01/08/23 Range/Units 22:10 04:24 WBC 8.2 (3.8-10.6) k/uL RBC 4.28 (3.80-5.40) m/uL Hgb 14.3 (11.4-16.0) gm/dL Hct 41.6 (34.0-46.0) % Plt Count 294 225 (150-450) k/uL Comprehensive Metabolic Panel 01/07/23 Range/Units 22:10 Sodium 137 (137-145) mmol/L Potassium 3.8 (3.5-5.1) mmol/L Chloride 100 (98-107) mmol/L Carbon Dioxide 24 (22-30) mmol/L BUN 13 (7-17) mg/dL Creatinine 0.99 (0.52-1.04) mg/dL Glucose 210 H (74-99) mg/dL Calcium 9.4 (8.4-10.2) mg/dL AST 35 (14-36) U/L ALT 26 (4-34) U/L Alkaline Phosphatase 136 H (38-126) U/L Total Protein 6.8 (6.3-8.2) g/dL Albumin 3.9 (3.5-5.0) g/dL Current Medications Generic Name Dose Route Start Last Admin Trade Name Freq PRN Reason Stop Dose Admin Albuterol Sulfate 2.5 mg 01/08/23 01:53 Albuterol Nebulized 2.5 Mg/3 Ml INHALATION RT-Q6H PRN Shortness Of Breath Aspirin 325 mg 01/08/23 09:00 01/08/23 08:27 Aspirin 325 Mg Tab PO 325 mg DAILY ANGIE Administration Atorvastatin Calcium 20 mg 01/08/23 21:00 Atorvastatin 20 Mg Tab PO HS ANGIE Citalopram Hydrobromide 20 mg 01/08/23 09:00 01/08/23 08:27 Citalopram Hydrobromide 20 Mg Tab PO 20 mg DAILY [facility] Administration Heparin Sodium/Sodium Chloride 250 mls @ 9.253 mls/hr 01/07/23 23:45 01/08/23 00:02 25,000 unit/ Sodium Chloride IV 12 units/kg/hr .Q24H ANGIE 9.253 mls/hr Administration Protocol 12 UNITS/KG/HR Lisinopril 20 mg 01/08/23 09:00 01/08/23 08:26 Lisinopril 20 Mg Tab PO 20 mg DAILY [facility] Administration Montelukast Sodium 10 mg 01/08/23 09:00 01/08/23 08:26 Montelukast 10 Mg Tab PO 10 mg DAILY [facility] Administration Nitroglycerin 0.4 mg 01/07/23 23:46 Nitroglycerin Sl Tabs 0.4 Mg Tab SUBLINGUAL Q5M PRN Chest Pain Pantoprazole Sodium 40 mg 01/08/23 09:00 01/08/23 08:26 Pantoprazole 40 Mg Tablet PO 40 mg DAILY [facility] Administration Intake and Output 01/07/23 01/08/23 01/08/23 22:59 06:59 14:59 Other: Voiding Method Toilet # Voids 1 Weight 77.111 kg 77.111 kg 01/08/23 04:24 01/07/23 22:10
--- NOTE | 2023-01-08 13:04 | CA ---
Transthoracic Echo Report Name: Antionette Brink Age: 77 Gender: F : 1945 Exam Date: 01/08/2023 09:27 Exam Location: [place] [facility] Ht (in): 64 Wt (lb): 150 Ordering Physician: Dariela Choi Attending/Referring Phys: Certified Physical Therapist Assistant Benny Purcell RDCS Procedure CPT: Indications: Chest Pain, Elevated Troponins Cardiac Hx: HTN; CP; High Chol.; Repaired AV (?) Technical Quality: Fair Contrast 1: Total Dose (mL): Contrast 2: Total Dose (mL): MEASUREMENTS (Male / Female) Normal Values 2D ECHO LV Diastolic Diameter PLAX 3.1 cm 4.2 - 5.9 / 3.9 - 5.3 cm LV Systolic Diameter PLAX 2.1 cm LV Fractional Shortening PLAX 31.7 % IVS Diastolic Thickness 1.6 cm 0.6 - 1.0 / 0.6 - 0.9 cm IVS Systolic Thickness 1.9 cm LVPW Diastolic Thickness 1.5 cm 0.6 - 1.0 / 0.6 - 0.9 cm LVPW Systolic Thickness 1.7 cm LV Relative Wall Thickness 1.0 RV Internal Dim ED PLAX 3.3 cm LVOT Diameter 1.9 cm LA Systolic Diameter LX 3.6 cm 3.0 - 4.0 / 2.7 - 3.8 cm LV Diastolic Volume MOD BP 47.7 cm??? 67 - 155 / 56 - 104 cm??? LV Systolic Volume MOD BP 20.3 cm??? 22 - 58 / 19 - 49 cm??? LV Ejection Fraction MOD BP 57.5 % >= 55 % LV Stroke Volume MOD BP 27.4 cm??? LV Diastolic Volume MOD 4C 45.9 cm??? LV Systolic Volume MOD 4C 22.1 cm??? LV Ejection Fraction MOD 4C 51.8 % LV Stroke Volume MOD 4C 23.8 cm??? LV Diastolic Length 4C 7.1 cm LV Systolic Length 4C 5.4 cm LV Diastolic Volume MOD 2C 49.4 cm??? LV Systolic Volume MOD 2C 17.5 cm??? LV Ejection Fraction MOD 2C 64.5 % LV Stroke Volume MOD 2C 31.8 cm??? LV Diastolic Length 2C 7.2 cm LV Systolic Length 2C 5.8 cm Ascending Aorta Diameter 2.7 cm M-MODE Aortic Root Diameter MM 2.8 cm LA Systolic Diameter MM 4.7 cm LA Ao Ratio MM 1.7 MV E Point Septal Separation 0.6 cm AV Cusp Separation MM 0.9 cm DOPPLER AV Peak Velocity 96.5 cm/s AV Peak Gradient 3.7 mmHg MV Deceleration [place] 328.7 cm/s??? MR Peak Velocity 408.1 cm/s MR Peak Gradient 66.6 mmHg Mitral E Point Velocity 73.4 cm/s Mitral A Point Velocity 92.8 cm/s Mitral E to A Ratio 0.8 MV Deceleration Time 223.4 ms MV E' Velocity 3.9 cm/s Mitral E to MV E' Ratio 18.7 TR Peak Velocity 148.2 cm/s TR Peak Gradient 8.8 mmHg Right Ventricular Systolic Press 18.8 mmHg PV Peak Velocity 89.6 cm/s PV Peak Gradient 3.2 mmHg FINDINGS Left Ventricle Left ventricular ejection fraction is estimated at 55-60 %. Mild concentric left ventricular hypertrophy. Grade 1 diastolic dysfunction. Normal basal systolic function. Right Ventricle Normal right ventricular size and function. Right Atrium Normal right atrial size. Left Atrium Mild left atrial dilatation. Mitral Valve Mild thickening/calcification of the anterior mitral valve leaflet. Mild thickening/calcification of the posterior mitral valve leaflet. Mild mitral annular calcification. [id number] mitral regurgitation. Aortic Valve Trileaflet aortic valve. Thickened aortic valve without stenosis. Mild aortic regurgitation. Tricuspid Valve Trace to mild tricuspid regurgitation. Pulmonic Valve Structurally normal pulmonic valve. Pericardium Normal pericardium. No pericardial effusion. Aorta Normal size aortic root and proximal ascending aorta. CONCLUSIONS Left ventricular ejection fraction 55-60% Mild LVH Mild mitral calcification [id number] mitral regurgitation Mild aortic regurgitation No pericardial Previewed by: Dr. Rajiv Marie DO (Electronically Signed) Final Date: 08 January 2023 13:03
[2023-01-08] MEDS ORDERED: VERAPAMIL 2.5 MG/ML 2 ML AMP ONE (13:32)
[2023-01-08] MEDS ORDERED: fentaNYL (PF) 50 MCG/ML 2 ML AMP ONE (13:32)
[2023-01-08 13:44] LABS: Chol/HDL Ratio 3.87 Ratio; LDL Cholesterol,Calculated 102.3 mg/dL (0.0-131.0)
[2023-01-08] MEDS ORDERED: IV FLUID CONTINUATION 500 ML IV ONE (13:50)
[2023-01-08] MEDS ORDERED: MIDAZOLAM 2 MG/2 ML VIAL IV ONE (14:18)
[2023-01-08] MEDS ORDERED: LIDOCAINE 1% INJ 10MG/ML (5 ML VIAL-PF) SQ ONE (14:18)
[2023-01-08] MEDS ORDERED: fentaNYL (PF) 50 MCG/ML 2 ML AMP IV ONE (14:18)
[2023-01-08] MEDS ORDERED: VERAPAMIL SYRINGE (5 MG/10 ML) INTRAARTER ONE (14:26)
[2023-01-08] MEDS ORDERED: HEPARIN SODIUM 1,000 UN/ML (10ML VL) ONE (14:27)
[2023-01-08] MEDS: HEPARIN SODIUM 1,000 UN/ML (10ML VL) IV ONE ×3 (14:32→15:05)
[2023-01-08] MEDS ORDERED: PHENYLEPHRINE-0.9% NACL SYG 1,000 MCG/10 ML SYRINGE IV ONE (14:33)
[2023-01-08] MEDS ORDERED: IOPAMIDOL-370 200ML BTL INJ ONE (14:56)
--- NOTE | 2023-01-08 15:19 | P.CARDCATH ---
Description of Procedure: PROCEDURES PERFORMED: Left heart catheterization, bilateral coronary angiography, iFR left main to LAD, ramus and circumflex INDICATION: NSTEMI CONSENT:I have discussed the risks, benefits and alternative therapies for the above-mentioned procedure and for both sedation/analgesia as well as necessary blood product administration, if indicated, as they pertain to this patient. The patient has indicated understanding and acceptance of the risks and procedures discussed. PROCEDURE: After the risks, benefits and alternatives of the above mentioned procedure explained in detail with the patient, informed consent was obtained. Patient was taken to the catheterization lab and prepped and draped in usual fashion. 1% lidocaine was used to anesthetize the right ulnar artery given the radial artery appeared smaller diameter and ulnar better caliber vessel. A 6- [place] sheath was placed in the right ulnar artery using modified Seldinger technique. Left coronary angiography was performed with a 5-[place] JL 3.5 catheter and right coronary angiography was performed with a 6-[place] AR2 catheter in various views. A 6-[place] AR2 catheter was inserted into the left ventricle and pressure measurements were obtained. There was questionable left main 40-50% stenosis and therefore decision was made to perform iFR. Heparin was given. Using the 5-[place] JL 3.5 catheter, a 0.014 pressure wire was advanced into the ostial left main and normalized. The wire was then advanced into the proximal LAD, proximal ramus and proximal circumflex. There was initially some drift with first measurement and measurement was obtained again. iFR was performed and normal at 0.91 (repeat 0.97) in the circumflex; 0.99 and 0.98 in the LAD, 0.94 ramus. The wire was pulled. The right ulnar sheath was removed and a TR band was placed with hemostasis achieved. The patient tolerated the procedure well. At the end of the case it was noted that the peripheral IV was infiltrated and had been receiving some IV fluids which were subcutaneous. The IV was pulled and pressure was held. Patient was transported back to the post catheterization holding area in stable condition. Conscious Sedation: Patient was monitored under the direct supervision of myself for conscious sedation using Versed and fentanyl for a total duration of 36 venancio jacky HEMODYNAMICS: Aorta: 95/42 OV: 102/1, LVEDP 6 SELECTIVE CORONARY ARTERIOGRAPHY: LEFT MAIN: The left main is a large caliber vessel which trifurcates into the LAD, ramus and circumflex. There is a mid left main 40-50% stenosis. LEFT ANTERIOR DESCENDING CORONARY ARTERY: LAD is a large caliber vessel which wraps around to the apex. There is diffuse mid LAD 50% stenosis just prior to a patent mid LAD stent. Diagonal 1 has mild luminal irregularities. There are [id number] collaterals to the RCA.. RAMUS INTERMEDIUS: The ramus is a moderate caliber vessel with proximal 50% stenosis. LEFT CIRCUMFLEX CORONARY ARTERY: Left circumflex is a moderate caliber vessel. There is 99% stenosis of the proximal OM1 just prior to it bifurcating into a small caliber superior branch then the OM1 is 100% occluded distally, similar to prior RIGHT CORONARY ARTERY: The right coronary artery is a small to moderate caliber vessel which gives off a PDA and PLV branch and is the dominant vessel. There is significant proximal tortuosity and 100% proximal RCA stenosis. FINAL IMPRESSION: 1. CAD as described above including 40-50% left main stenosis, mid LAD 50% stenosis, ramus 50% stenosis, OM1 99% stenosis with distal OM1 100% stenosis, 100% RCA stenosis. 2. Fairly similar [place] CAD compared to prior angiogram 2019 other than progression of small caliber 99% OM1 branch, some progression of left main disease and 100% RCA stenosis with [id number]-[id number]-fkfee collaterals. 3. iFR of left main to LAD, ramus and circumflex normal 4. Low left sided filling pressures PLAN: 1. Aggressive risk factor modification per most recent ACC/AHA guidelines. 2. Some progression of left main disease however iFR appears nonischemic and continue with medical therapy. If patient having further significant angina may consider SEWING [employer]NIQUES DEMONSTRATOR PCI RCA or attempt at balloon angioplasty or stenting of small caliber OM1 however at this point continue with medical therapy.
[2023-01-08] MEDS ORDERED: DEXTROSE 50% SYRINGE 50 ML IVP PRN ×2 (15:50)
--- NOTE | 2023-01-08 15:53 | P.PN ---
Subjective Progress Note Date: 01/08/23 (delayed charting seen at 1030) Patient is a 77-year-old female with diabetes mellitus type 2 on oral medications, hypertension, and COPD who presented to the hospital with complaints of chest pain. On arrival to the ER her vital signs were within normal limits. Laboratory analysis was remarkable for blood glucose of 210, magnesium 1.5, and troponin of 0.099. Chest x-ray showed no acute cardiopulmonary process. EKG demonstrated an incomplete right bundle branch lock. She was admitted to the telemetry unit for further monitoring. Her troponin remained elevated near the same amount. She was seen by cardiology and arrangements are made for cardiac catheterization. Patient seen and examined at bedside. Denies any more chest pain, no shortness of breath, no lightheadedness, no dizziness. Feels better than on admission. Has been having chest pain for the last several days. Family present at bedside and all questions answered. Vital signs reviewed General: nontoxic, no distress, appears at stated age Cardiovascular: S1S2 reg, no murmur, positive posterior tibial pulse bilateral, Lungs: CTA bilateral, no rhonchi, no rales , no accessory muscle use Abdominal: soft, nontender to palpation, no guarding, no appreciable organomegaly Ext: no gross muscle atrophy, no edema, no contractures Neuro: CN II-XI grossly intact, no focal neuro deficits Psych: Alert, oriented, appropriate affect Assessment: Acute NSTEMI, possible cardiac etiology Diabetes mellitus type 2 with hyperglycemia Hypertension Dyslipidemia Chronic: COPD without exacerbation GERD ZANE Arthritis Carpel tunnel Imaging: Cardiac cath showed stable CAD with no need for intervention at this time unless has conitnued anginal symptoms. Data Review: Vital signs reviewed pulse 68, respirations 16, blood pressure 163/77, O2 sat 96% on room air Labs remarkable for blood sugar 136, magnesium 2.1, troponin 0.111, cholesterol profile within normal limits. Plan: -Aspirin 81 mg daily, Plavix 75 mg daily, Lipitor 20 mg at night -Lisinopril 20 mg daily, protonix 40 mg daily, Singulair 10 mg daily -Cardiology note reviewed and patient had cardiac cath today -Continue with heparin drip -IV contrast dye exposure will check basic metabolic profile in a.m. -Should have outpatient follow-up with her primary care physician regarding her diabetes to ensure that it is adequately controlled. Metformin currently on hold, sliding scale insulin DVT prophylaxis: Heparin gtt Anticipated discharge date: pending clinical course Anticipated discharge place: pending clinical course This dictation was prepared using [employer] voice recognition software. Though every attempt is made to correct errors during during dictation some may still exist. Objective - Vital Signs Vital signs: Vital Signs Temp 97.9 F 01/08/23 00:30 Pulse 57 L 01/08/23 11:59 Resp 16 01/08/23 11:59 BP 141/76 01/08/23 11:59 Pulse Ox 94 L 01/08/23 11:59 FiO2 Intake & Output 01/07/23 01/08/23 01/08/23 18:59 06:59 18:59 Intake Total 493.61 Balance 493.61 Weight 77.111 kg Intake: IV 400 Intake, IV Titration 93.61 Amount Heparin Sod,Pork in 0.45% 93.61 NaCl 25,000 unit In 0.45 % NaCl 1 250ml.bag @ 12 UNITS/KG/HR 9.253 mls/hr IV .Q24H [facility] Rx#: [id number] Other: Voiding Method Toilet Toilet # Voids 1 - Labs CBC & Chem 7: 01/08/23 04:24 01/07/23 22:10 Labs: Abnormal Lab Results - Last 24 Hours (Table) 01/07/23 01/07/23 01/08/23 Range/Units 22:10 22:10 00:37 APTT (22.0-30.0) sec Glucose 210 H (74-99) mg/dL POC Glucose (mg/dL) (70-110) mg/dL Magnesium 1.5 L (1.6-2.3) mg/dL Alkaline Phosphatase 136 H (38-126) U/L Troponin I 0.099 H* 0.096 H* (0.000-0.034) ng/mL 01/08/23 01/08/23 01/08/23 Range/Units 04:24 05:27 06:10 APTT 163.0 H* (22.0-30.0) sec Glucose (74-99) mg/dL POC Glucose (mg/dL) 144 H (70-110) mg/dL Magnesium (1.6-2.3) mg/dL Alkaline Phosphatase (38-126) U/L Troponin I 0.111 H* (0.000-0.034) ng/mL 01/08/23 Range/Units 11:28 APTT (22.0-30.0) sec Glucose (74-99) mg/dL POC Glucose (mg/dL) 136 H (70-110) mg/dL Magnesium (1.6-2.3) mg/dL Alkaline Phosphatase (38-126) U/L Troponin I (0.000-0.034) ng/mL
[2023-01-08] MEDS: INSULIN ASPART (NovoLOG) 100 UNIT/ML VIAL SQ SCH ×2 (16:30→20:52)
[2023-01-08 16:31] LABS: Glucose,Whole Blood 166 mg/dL (70-110)
[2023-01-08] MEDS: CLOPIDOGREL 75 MG TAB PO SCH (16:34)
[2023-01-08 20:03] LABS: Glucose,Whole Blood 200 mg/dL (70-110)
[2023-01-08] MEDS: ACETAMINOPHEN TAB 325 MG TAB PO PRN (20:51)
[2023-01-08] MEDS ORDERED: ATORVASTATIN 20 MG TAB PO SCH (21:00)
[2023-01-09] MEDS: ACETAMINOPHEN TAB 325 MG TAB PO PRN (04:05)
[2023-01-09 04:07] VITALS: TEMP 98
[2023-01-09 05:49] LABS: Glucose,Whole Blood 142 mg/dL (70-110)
[2023-01-09] MEDS: INSULIN ASPART (NovoLOG) 100 UNIT/ML VIAL SQ SCH ×2 (05:50→11:57)
[2023-01-09] MEDS: lisinopriL 20 MG TAB PO SCH (08:02)
[2023-01-09] MEDS: CITALOPRAM HYDROBROMIDE 20 MG TAB PO SCH (08:02)
[2023-01-09] MEDS: PANTOPRAZOLE 40 MG TABLET PO SCH (08:02)
[2023-01-09] MEDS: MONTELUKAST 10 MG TAB PO SCH (08:03)
[2023-01-09] MEDS: ASPIRIN 325 MG TAB PO SCH (08:03)
[2023-01-09] MEDS: CLOPIDOGREL 75 MG TAB PO SCH (08:03)
[2023-01-09 08:05] VITALS: BP 142/55; PULSE 55
[2023-01-09 09:13] LABS: HCT 34.8 % (34.0-46.0); HGB 11.5 gm/dL (11.4-16.0); MCH 32.7 pg (25.0-35.0); Macrocytosis Slight; Mean Platelet Volume 9.3; Platelet Count 219 k/uL (150-450); RBC 3.52 m/uL (3.80-5.40); RDW 14.8 % (11.5-15.5); WBC 7.4 k/uL (3.8-10.6)
[2023-01-09 09:29] LABS: Potassium 4.2 mmol/L (3.5-5.1)
--- NOTE | 2023-01-09 11:40 | P.PN ---
Subjective Progress Note Date: 01/09/23 Patient is a pleasant 77-year-old female with significant past medical history, diabetes, hypertension, COPD, asthma, CAD status post PCI to the mid LAD 02/2019 who presented with complaints of chest pain. She reports that she has been having chest pain for the last several days, this got worse last night and she came to the emergency department. 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 Francois. She reports that the chest pain occurs randomly, nothing makes it better or worse however it appears to have been constant over the past few days. She was just sitting reading last night when the pain intensified. Denies any diaphoresis. She also had no appetite last night. She is always short of breath and relates this to her asthma. She does report that this feels similar to when she had her stents placed in the past however less severe. Family reports that she has been more fatigued over the past couple weeks. Troponin elevated 0.099, 0.096, 0.111. EKG shows sinus rhythm with incomplete right bundle branch block. Chest x-ray shows no acute findings. Labs reviewed: WBC 8.2, hemoglobin 14.3, platelets 294, creatinine 0.99. Echo from 2019 with ejection fraction 4045%. She was started on a heparin drip. She denies any chest pain overnight, describes her breathing has been stable at her baseline. She underwent heart catheterization 01/08/23 that revealed CAD including 40-50% left main stenosis, mid LAD 50% stenosis, ramus 50% stenosis, OM1 99% stenosis with distal OM1 100% stenosis, 100% RCA stenosis. Fairly similar samish CAD compared to prior angiogram 2018 other than progression of small caliber 99% OM1 branch, some progression of left main disease and 100% RCA stenosis with [id number] collaterals. iFR of left main to LAD, ramus and circumflex normal. 01/09 She is doing well this morning, denies any chest pain or shortness of breath. Right arm is bruised and swollen, however improved from yesterday. Hemoglobin 11.5, creatinine 0.89. Echocardiogram shows ejection fraction 5560 percent, grade 1 diastolic dysfunction, mild to moderate mitral regurgitation, mild aortic regurgitation. PHYSICAL EXAMINATION: This is a 77-year-old female in no apparent distress at the time of my examination. HEENT: Head is atraumatic, normocephalic. Pupils are equal, round. Sclerae anicteric. Conjunctivae are clear. Mucous membranes of the mouth are moist. Neck is supple. There is no jugular venous distention. No carotid bruit is heard. CHEST EXAMINATION: Lungs are clear to auscultation. No chest wall tenderness is noted on palpation or with deep breathing. HEART EXAMINATION: Heart regular rate and rhythm. S1, S2 heard. No murmurs, ga llops or rub. ABDOMEN: Soft, nontender. Bowel sounds are heard. EXTREMITIES: 2+ peripheral pulses with no evidence of peripheral edema and no calf tenderness noted. Right radial site with no active bleeding or oozing, right forearm edema and bruising, distal pulses are present. NEUROLOGIC EXAMINATION: Patient is awake, alert and oriented x3. IMPRESSION AND PLAN: NSTEMI Elevated troponin Chest pain CAD status post PCI mid LAD 02/2019 Hypertension COPD Asthma Diabetes PLAN: Continue with aspirin and plavix. Right forearm swelling mostly from infiltrated IV, recommend ice and Tylenol when necessary for pain. She was instructed if the swelling gets worse or for any concerns to go to the emergency room. On heart cath, she has some progression of left main disease however iFR appears nonischemic and continue with medical therapy. If patient having further significant angina may consider [employer] PCI RCA or attempt at balloon angioplasty or stenting of small caliber OM1 however at this point continue with medical therapy. Okay to discharge home from cardiology standpoint. Follow up in clinic in 1 week. I am dictating on behalf of Dr. Rajiv Marie's history/physical and assess ment/plan. Objective - Vital Signs Vital signs: Vital Signs Temp 98.0 F 01/09/23 04:00 Pulse 55 L 01/09/23 08:00 Resp 16 01/09/23 08:00 BP 142/55 01/09/23 08:00 Pulse Ox 96 01/09/23 08:00 FiO2 Intake & Output 01/08/23 01/09/23 01/09/23 18:59 06:59 18:59 Intake Total 673.61 360 Balance 673.61 360 Intake: IV 400 Intake, IV Titration 93.61 Amount Heparin Sod,Pork in 0.45% 93.61 NaCl 25,000 unit In 0.45 % NaCl 1 250ml.bag @ 12 UNITS/KG/HR 9.253 mls/hr IV .Q24H [facility] Rx#: [id number] Oral 180 360 Other: Voiding Method Toilet Toilet Toilet # Voids 1 - Labs CBC & Chem 7: 01/09/23 08:22 01/09/23 08:22 Labs: Abnormal Lab Results - Last 24 Hours (Table) 01/08/23 01/08/23 01/08/23 Range/Units 16:07 16:30 20:01 RBC (3.80-5.40) m/uL APTT 65.0 H (22.0-30.0) sec Sodium (137-145) mmol/L Carbon Dioxide (22-30) mmol/L Glucose (74-99) mg/dL POC Glucose (mg/dL) 166 H 200 H (70-110) mg/dL Calcium (8.4-10.2) mg/dL 01/09/23 01/09/23 01/09/23 Range/Units 05:48 08:22 08:22 RBC 3.52 L (3.80-5.40) m/uL APTT (22.0-30.0) sec Sodium 134 L (137-145) mmol/L Carbon Dioxide 21 L (22-30) mmol/L Glucose 121 H (74-99) mg/dL POC Glucose (mg/dL) 142 H (70-110) mg/dL Calcium 8.0 L (8.4-10.2) mg/dL
[2023-01-09 11:46] LABS: Glucose,Whole Blood 134 mg/dL (70-110)
--- NOTE | 2023-01-09 11:55 | P.DS ---
Providers Date of admission: 01/07/23 23:46 Expected date of discharge: 01/09/23 Attending physician: Ty Aviles MD Consults: 01/07/23 23:46 Consult Physician Urgent Consulting Provider: [facility] Consult Reason/Comments: NSTEMI Do you want consulting provider notified?: Yes Primary care physician: Kg Kolb MD Hospital Course: Discharge Diagnosis: NSTEMI- No stent required via FFR on cath Chest pain CAD s/p PCI to the LAD in 2019 HTN COPD without exacerbation Asthma Diabetes type II Hospital Course: Patient is a 77-year-old female with diabetes mellitus type 2 on oral medications, hypertension, and COPD who presented to the hospital with complaints of chest pain. On arrival to the ER her vital signs were within normal limits. Laboratory analysis was remarkable for blood glucose of 210, magnesium 1.5, and troponin of 0.099. Chest x-ray showed no acute cardiopulmonary process. EKG demonstrated an incomplete right bundle branch lock. She was admitted to the telemetry unit for further monitoring. Her troponin remained elevated near the same amount. She was seen by cardiology and arrangements are made for cardiac catheterization. Which showed stable coronary artery disease disease from 2019, and no need for stents. Cardiology recommended aggressive risk factor modification and resumption of Plavix. Echocardiogram demonstrated an ejection fraction 55-60% with grade 1 diastolic dysfunction. Patient did have her IV infiltrated into her right upper extremity with significant swelling. However pulses were dopplerable at the radial and ulnar at range of motion was intact. She was up and in delineating he did not have any recurrent chest pain. She was determined stable for discharge home. Follow-up: Dr. Marie, Dr. Kolb in 2-3 days, Additional meidcations are Plavix. Patient seen and examined at bedside. No chest or shortness of breath.She has been up and walking without chest pain. She does complain of some right wrist pain. Vital signs reviewed and stable. General: nontoxic, no distress, appears at stated age Derm: warm, dry Head: atraumatic, normocephalic, symmetric Eyes: EOMI, no lid lag, anicteric sclera Mouth: no lip lesion, mucus membranes moist Cardiovascular: S1S2 reg, no murmur, positive posterior tibial pulse bilateral, Lungs: CTA bilateral, no rhonchi, no rales , no accessory muscle use Abdominal: soft, nontender to palpation, no guarding, no appreciable organomegaly Ext: no gross muscle atrophy, no edema b/l LE, no contractures wirght wirst- palpable ular pulse, dopplerable radial pulse, + edema and bruising right forarm. full ROM without pain with wrist flexion and extension, Able to apporximate thumb to all fingers Neuro: CN II-XI grossly intact, no focal neuro deficits Psych: Alert, oriented, appropriate affect A total of 35 minutes of time were spent preparing this complex discharge summary. Patient was discharged on 01/09/23. This dictation was prepared using [employer] voice recognition software. Though every attempt is made to correct errors during during dictation some may still exist. Patient Condition at Discharge: Fair Plan - Discharge Summary Discharge Rx Participant: Yes New Discharge Prescriptions: New Clopidogrel [Plavix] 75 mg PO DAILY #30 tab Continue Montelukast Sodium [Singulair] 10 mg PO DAILY Citalopram Hydrobromide [CeleXA] 20 mg PO DAILY Albuterol Inhaler [Ventolin Hfa Inhaler] 1 - 2 puff INHALATION RT-Q6H PRN PRN Reason: Shortness Of Breath Omeprazole 20 mg PO DAILY Aspirin EC [Ecotrin Low Dose] 81 mg PO DAILY Nystatin 100,000 Unit/gm Powd [Mycostatin Powder] 1 applic TOPICAL BID metFORMIN HCL 1,000 mg PO BID #0 lisinopriL [Zestril] 20 mg PO DAILY Atorvastatin Calcium 20 mg PO HS Discharge Medication List Citalopram Hydrobromide [CeleXA] 20 mg PO DAILY 04/24/15 [History] Montelukast Sodium [Singulair] 10 mg PO DAILY 04/24/15 [History] Albuterol Inhaler [Ventolin Hfa Inhaler] 1 - 2 puff INHALATION RT-Q6H PRN 09/06/17 [History] Omeprazole 20 mg PO DAILY 09/06/17 [History] Aspirin EC [Ecotrin Low Dose] 81 mg PO DAILY 02/22/19 [History] Atorvastatin Calcium 20 mg PO HS 01/07/23 [History] Nystatin 100,000 Unit/gm Powd [Mycostatin Powder] 1 applic TOPICAL BID 01/07/23 [History] lisinopriL [Zestril] 20 mg PO DAILY 01/07/23 [History] Clopidogrel [Plavix] 75 mg PO DAILY #30 tab 01/09/23 [Rx] metFORMIN HCL 1,000 mg PO BID #0 01/09/23 [Rx] Follow up Appointment(s)/Referral(s): Rajiv Marie DO [STAFF PHYSICIAN] - 1 Week Kg Kolb MD [Primary Care Provider] - 1 Week Patient Instructions/Handouts: Angina (DC), After Radial Heart Catheterization (GEN) Activity/Diet/Wound Care/Special Instructions: Activity: As tolerated Diet: Heart Healthy, consistent carb Special Instructions: Monitoring of right wrist: Monitor for increased swelling, bruising, numbness, decreased range of motion. If this occurs please call Dr. Marie's office Alternate warm and cold compresses Keep arm elevated above heart Obtain a stress ball and squeeze 5-10 times/hr while awake. Discharge Disposition: HOME SELF-CARE
== END 2023-01-09 12:27 | disposition home or self-care (01) | DRG 282 ==
LOC: EC 21:46 → 3SCARD 23:46
PROVIDERS: ADMIT Internal Medicine; ATTEND Internal Medicine
PROC: 4A033BC Measurement of Arterial Pressure, Coronary, Percutaneous Approach (ICD-10-PCS; 2023-01-08)
PROC: 4A023N7 Measurement of Cardiac Sampling and Pressure, Left Heart, Percutaneous Approach (ICD-10-PCS; principal; 2023-01-08 12:56)
PROC: B2111ZZ Fluoroscopy of Multiple Coronary Arteries using Low Osmolar Contrast (ICD-10-PCS; 2023-01-08 12:56)
DX: I21.4 Non-ST elevation (NSTEMI) myocardial infarction (principal); E11.42 Type 2 diabetes mellitus with diabetic polyneuropathy; E11.65 Type 2 diabetes mellitus with hyperglycemia; I45.10 Unspecified right bundle-branch block; I25.82 Chronic total occlusion of coronary artery; J44.9 Chronic obstructive pulmonary disease, unspecified; I10 Essential (primary) hypertension; N18.9 Chronic kidney disease, unspecified; I25.110 Atherosclerotic heart disease of native coronary artery with unstable angina pectoris; E78.5 Hyperlipidemia, unspecified; G47.33 Obstructive sleep apnea (adult) (pediatric); M13.0 Polyarthritis, unspecified; Z96.652 Presence of left artificial knee joint; Z90.12 Acquired absence of left breast and nipple; Z28.311 Partially vaccinated for COVID-19; Z85.3 Personal history of malignant neoplasm of breast; T39.315S Adverse effect of propionic acid derivatives, sequela; Z88.2 Allergy status to sulfonamides; Z79.84 Long term (current) use of oral hypoglycemic drugs; Z79.02 Long term (current) use of antithrombotics/antiplatelets; Z79.899 Other long term (current) drug therapy; Z95.5 Presence of coronary angioplasty implant and graft; Z79.82 Long term (current) use of aspirin; Z80.51 Family history of malignant neoplasm of kidney; Z82.79 Family history of other congenital malformations, deformations and chromosomal abnormalities; Z82.49 Family history of ischemic heart disease and other diseases of the circulatory system
CPT/HCPCS: 36415; 71046; 80048; 80053; 80061; 83735; 84484; 85025; 85027; 85049; 85610; 85730; 93005; 93306; 93458; 93799; 96374; 99291

== ENCOUNTER → 2023-03-17 | Outpatient (CLI) | payer MEDICARE ==
[2023-03-17 12:47] LABS: African American GFR (CKD) 62 (>60 ml/min/1.73 sqM); Blood Urea Nitrogen 17 mg/dL (7-17); Non-African American GFR(CKD) 54 (>60 ml/min/1.73 sqM)
--- NOTE | 2023-03-17 13:27 | CT ---
EXAMINATION TYPE: CT angio chest CT DLP: 303.70 mGycm, Automated exposure control for dose reduction was used. DATE OF EXAM: 03/17/2023 1:14 PM COMPARISON: CT 01/12/2023 CLINICAL INDICATION:Female, 77 years old with history of I26.99 PULMONARY embolism; DE and PE in January. Follow up TECHNIQUE/CONTRAST: CTA scan of the thorax is performed with IV Contrast, patient injected with 80 mL of Isovue 370, pulm onary embolism protocol. MIP images are created and reviewed these are created on a separate worksta tion.. FINDINGS: Pulmonary Artery: There remains a filling defect within the right lower lobe pulmonary arterial vascu lature series 4 image 83 which is nonocclusive. The other pulmonary emboli seen on prior are no longe r visualized. No new pulmonary emboli visualized. Pulmonary trunk is enlarged measuring up to 33 mm. Lungs/Pleura: No evidence of focal consolidation, pleural effusion or pneumothorax. Airway: Large airways are patent. Heart: Heart is enlarged for size. Coronary artery calcifications are present. Vasculature: Moderate atherosclerotic calcifications are present throughout the aorta and its branche s. Mediastinum: No gross evidence of adenopathy. Moderate hiatal hernia is present. Musculoskeletal: No acute osseous abnormalities Soft Tissues: Left breast implant with capsular calcifications is intact. Lower neck: No significant findings. Upper Abdomen: The gallbladder is surgically absent. IMPRESSION: 1. Near resolution of prior emboli, there remains a small nonocclusive right lower lobe pulmonary emb olus. 2. Mild to moderate cardiomegaly. 3. Moderate hiatal hernia. 4. Pulmonary hypertension.
== END | disposition home or self-care (01) ==
LOC: RADCTMAIN 12:05
PROVIDERS: ATTEND Internal Medicine Critical Care Medicine
DX: I26.99 Other pulmonary embolism without acute cor pulmonale (principal); I21.9 Acute myocardial infarction, unspecified; I27.20 Pulmonary hypertension, unspecified; K44.9 Diaphragmatic hernia without obstruction or gangrene; I51.7 Cardiomegaly
CPT/HCPCS: 82565; 84520; 71275; 36415; Q9967

== ENCOUNTER → 2023-03-17 | Outpatient (CLI) | payer MEDICARE ==
--- NOTE | 2023-03-18 07:57 | MM ---
Reason for Exam: Screening (asymptomatic). Last mammogram was performed 3 year(s) and 6 month(s) ago. Patient History: Menarche at age 11. Patient has no children. Postmenopausal. Breast cancer, left, age 66. Estrogen for 5 years until age 56. 09/21/2011, Mastectomy on the Left side. 2011, Reduction on the Right side. 10/28/2014, Benign Core Biopsy on the right side. 08/20/2011, Malignant Excisional Biopsy on the left side. 08/20/2011, Malignant Excisional Biopsy on the left side. 2011, Implant on the left side. Paternal aunt had breast cancer. Prior Study Comparison: 03/29/2016 Right Diagnostic Mammogram, [facility]. 09/20/2018 Right Diagnostic Mammogram, [facility]. 10/12/2019 Right Diagnostic Mammogram, [facility]. Tissue Density: Right: The breast tissue is heterogeneously dense. This may lower the sensitivity of mammography. Findings: Pattern appears stable. Benign spherical and linear calcifications are within the left breast. No significant interval changes are evident. No suspicious groups of microcalcifications, spiculated or lobular masses, architectural distortion or other secondary signs of malignancy are mammographically apparent. Overall Assessment: Benign, BI-RAD 2 Management: Screening Mammogram of the right breast in 1 year. A negative mammogram report should not preclude additional follow up of suspicious palpable abnormalities. Patient should continue monthly self breast exam. A clinical breast exam by your physician is recommended on an annual basis and results should be correlated with mammographic findings. Electronically signed and approved by: Justus Baker D.O. Radiologis
== END | disposition home or self-care (01) ==
LOC: RADMAMWWP 13:06
PROVIDERS: ATTEND Family Medicine
DX: Z12.31 Encounter for screening mammogram for malignant neoplasm of breast (principal); Z78.0 Asymptomatic menopausal state; Z80.3 Family history of malignant neoplasm of breast
CPT/HCPCS: 77067

== ENCOUNTER → 2024-02-02 | Outpatient (CLI) | payer MEDICARE ==
[2024-02-02 18:20] LABS: ALT 18 U/L (8-44); AST 20 U/L (13-35); Chol/HDL Ratio 3.34 Ratio; LDL Cholesterol,Calculated 81.4 mg/dL (0.0-131.0)
== END | disposition home or self-care (01) ==
LOC: LABWHC1 12:35
PROVIDERS: ATTEND Internal Medicine
DX: E78.2 Mixed hyperlipidemia (principal)
CPT/HCPCS: 36415; 80061; 84450; 84460

== ENCOUNTER → 2024-02-09 | Outpatient (CLI) | payer MEDICARE ==
--- NOTE | 2024-02-09 19:25 | US ---
EXAMINATION TYPE: US kidneys/renal and bladder DATE OF EXAM: 02/09/2024 COMPARISON: CT Chest CLINICAL INDICATION: Female, 78 years old with history of E11.22 TYPE 2 DIABETES MELLITUS W DIABETIC CHRONIC; Abnormal labs EXAM MEASUREMENTS: Right Kidney: 8.8 x 3.9 x 4.1 cm Left Kidney: 9.6 x 4.9 x 4.1 cm Right Kidney: Small in size with cortical thinning, no evidence of hydro Left Kidney: Cortical thinning, no evidence of hydro Bladder: wnl Bilateral Jets seen: No IMPRESSION: 1. Cortical thinning compatible with chronic renal failure.
== END | disposition home or self-care (01) ==
LOC: RADUSWWP 02-01 15:34
PROVIDERS: ATTEND Internal Medicine
DX: E11.22 Type 2 diabetes mellitus with diabetic chronic kidney disease (principal)
CPT/HCPCS: 76770

== ENCOUNTER 2024-02-29 19:00 | Emergency (ER) | payer MEDICARE ==
[2024-02-29] MEDS: ACETAMINOPHEN TAB 325 MG TAB PO STA (20:05)
--- NOTE | 2024-02-29 20:15 | XR ---
EXAMINATION TYPE: XR chest 2V DATE OF EXAM: 02/29/2024 7:58 PM CLINICAL INDICATION:Female, 78 years old with history of fall; [facility] COMPARISON: Chest radiographs from 01/12/2023 TECHNIQUE: XR chest 2V Frontal and lateral views of the chest. FINDINGS: Lungs/Pleura: Haziness of the left lung felt to be due to overlapping soft tissues. There is no evide nce of pleural effusion, focal consolidation, or pneumothorax. Pulmonary vascularity: Unremarkable. Heart/mediastinum: Cardiomediastinal silhouette is enlarged and stable. Musculoskeletal: No acute osseous pathology. IMPRESSION: No acute cardiopulmonary disease/process.
--- NOTE | 2024-02-29 20:51 | ED ---
Fall HPI - General Chief Complaint: Fall Stated Complaint: fall Time Seen by Provider: 02/29/24 20:48 Source: patient, family, RN notes reviewed Mode of arrival: ambulatory Limitations: no limitations - History of Present Illness Initial Comments: 78-year-old female presented to the ER with a chief complaint of a fall. Patient states last night she was sitting on the edge of her bed which she states is "too high for her" and attempting to put on her pajama pants. She states she lost her balance and fell into a laundry basket. She then fell from the laundry basket onto the floor. She does report she hit her head and had a "goose egg" on the back of her head last night but has since subsided. She denies loss of consciousness. 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 She also is reporting centralized chest discomfort. She states it hurts to move bilateral arms and to press on it. She has been taking [id number] ibuprofen for pain relief. Denies lightheadedness, dizziness, chest pain or shortness of breath prior to fall. Denies any nausea, vomiting post incident. She denies any shortness of breath, abdominal pain, urinary complaints, constipation/diarrhea or other injuries. - Related Data Home Medications Medication Instructions Recorded Confirmed Citalopram Hydrobromide [CeleXA] 20 mg PO DAILY 04/24/15 01/12/23 Montelukast Sodium [Singulair] 10 mg PO DAILY 04/24/15 01/12/23 Albuterol Inhaler [Ventolin Hfa 1 - 2 puff INHALATION RT-Q6H PRN 09/06/17 01/12/23 Inhaler] Omeprazole 20 mg PO DAILY 09/06/17 01/12/23 Atorvastatin Calcium 20 mg PO HS 01/07/23 01/12/23 Nystatin 100,000 Unit/gm Powd 1 applic TOPICAL BID 01/07/23 01/12/23 [Mycostatin Powder] lisinopriL [Zestril] 20 mg PO DAILY 01/07/23 01/12/23 Previous Rx's Medication Instructions Recorded Clopidogrel [Plavix] 75 mg PO DAILY #30 tab 01/09/23 metFORMIN HCL 1,000 mg PO BID #0 01/09/23 Apixaban [Eliquis Starter Pack 5 - 10 mg PO DIRECTED 30 Days 01/13/23 (for VTE)] #1 each Allergies Allergy/AdvReac Type Severity Reaction Status Date / Time Sulfa (Sulfonamide Allergy Unknown Verified 02/29/24 19:14 Antibiotics) Childhood Review of Systems ROS Statement: Those systems with pertinent positive or pertinent negative responses have been documented in the HPI. ROS Other: All systems not noted in ROS Statement are negative. Past Medical History Past Medical History: Asthma, Cancer, COPD, Diabetes Mellitus, GERD/Reflux, Hyperlipidemia, Hypertension, Pneumonia, Renal Disease Additional Past Medical History / Comment(s): Bronchitis, NIDDM type II, neuropathy bilateral feet, L breast cancer with surgery, CKD thought d/t motrin but numbers are improving, ZANE-pt lost her CPap during a move, generalized arthritis, L carpal tunnel syndrome, UTIs, sinus problems-better since surgery. History of Any Multi-Drug Resistant Organisms: None Reported Past Surgical History: Adenoidectomy, Cholecystectomy, Orthopedic Surgery, Tonsillectomy Additional Past Surgical History / Comment(s): L breast biopsy, L mastectom y/reconstructive surgery, total L knee arthroplasty, bilateral feet bunionectomies, colonoscopy. Past Anesthesia/Blood Transfusion Reactions: Previous Problems w/ Anesthesia, Motion Sickness Additional Past Anesthesia/Blood Transfusion Reaction / Comment(s): STATES DIFFICULT INTUBATION - STATES "SMALL THROAT". DIFFICULTY WAKING UP. Date of Last Stent Placement:: 03/2019 Past Psychological History: No Psychological Hx Reported Smoking Status: Never smoker Past Alcohol Use History: Rare Past Drug Use History: None Reported - Past Family History Father Family Medical History: Renal Disease Additional Family Medical History / Comment(s): Father was born with one functioning kidney. He had a VT in his late 70s. Brother(s) Family Medical History: Cancer Additional Family Medical History / Comment(s): Kidney cancer Mother Family Medical History: Deep Vein Thrombosis (DVT) Additional Family Medical History / Comment(s): Mother lived to be 95 yrs old. General Exam Limitations: no limitations General appearance: alert, in no apparent distress Head exam: Present: atraumatic, normocephalic, normal inspection Eye exam: Present: normal appearance, PERRL, EOMI. Absent: scleral icterus, conjunctival injection, periorbital swelling Pupils: Present: normal accommodation (5mm bilaterally) ENT exam: Present: normal exam, normal oropharynx, mucous membranes moist Neck exam: Present: normal inspection. Absent: tenderness, meningismus, ly mphadenopathy Respiratory exam: Present: normal lung sounds bilaterally. Absent: respiratory distress, wheezes, rales, rhonchi, stridor Cardiovascular Exam: Present: regular rate, normal rhythm, normal heart sounds. Absent: systolic murmur, diastolic murmur, rubs, gallop, clicks GI/Abdominal exam: Present: soft, normal bowel sounds. Absent: distended, tenderness, guarding, rebound, rigid Extremities exam: Present: normal inspection, full ROM, normal capillary refill. Absent: tenderness, pedal edema, joint swelling, calf tenderness Neurological exam: Present: alert, oriented X3, CN II-XII intact Skin exam: Present: warm, dry, intact, normal color. Absent: rash Course Vital Signs 02/29/24 02/29/24 19:11 21:27 Temperature 98.1 F 97.7 F Pulse Rate 58 L 56 L Respiratory 18 16 Rate Blood Pressure 170/81 O2 Sat by Pulse 98 97 Oximetry Medical Decision Making - Medical Decision Making Was pt. sent in by a medical professional or institution (, PA, EDGER MACHINE HELPER, urgent care, hospital, or senior care...) When possible be specific @ -No Did you speak to anyone other than the patient for history (EMS, parent, family, police, friend...)? What history was obtained from this source @ -Daughter aiding in HPI and past medical history Did you review nursing and triage notes (agree or disagree)? Why? @ -I reviewed and agree with nursing and triage notes Were old charts reviewed (outside hosp., previous admission, EMS record, old EKG, old radiological studies, urgent care reports/EKG's, senior care records)? Report findings @ -No old charts were reviewed Differential Diagnosis (chest pain, altered mental status, abdominal pain women, abdominal pain men, vaginal bleeding, weakness, fever, dyspnea, syncope, head ache, dizziness, GI bleed, back pain, seizure, CVA, palpatations, mental health, musculoskeletal)? @ -Fracture, dislocation, contusion, hematoma, intracranial hemorrhage, concussion, abrasion, laceration this list does not like to be all-inclusive EKG interpreted by me (3pts min.). @ -None X-rays interpreted by me (1pt min.). @ -Chest x-ray interpreted by me negative for acute cardiopulmonary process. CT interpreted by me (1pt min.). @ -CT brain and C-spine negative for acute process U/S interpreted by me (1pt. min.). @ -None done What testing was considered but not performed or refused? (CT, X-rays, U/S, labs)? Why? @ -None What meds were considered but not given or refused? Why? @ -None Did you discuss the management of the patient with other professionals (professionals i.e. , PA, EDGER MACHINE HELPER, lab, RT, psych nurse, social media project manager, electronics assembler, teacher, lead security officer, rn case management)? Give summary @ -No Was smoking cessation discussed for >3mins.? @ -No Was critical care preformed (if so, how long)? @ -No Were there social determinants of health that impacted care today? How? (Homelessness, low income, unemployed, alcoholism, drug addiction, transportation, low edu. Level, literacy, decrease access to med. care, prison, rehab)? @ -No Was there de-escalation of care discussed even if they declined (Discuss DNR or withdrawal of care, Hospice)? DNR status @ -No What co-morbidities impacted this encounter? (DM, HTN, Smoking, COPD, CAD, Cancer, CVA, ARF, Chemo, Hep., AIDS, mental health diagnosis, sleep apnea, morbid obesity)? @ -DVT patient currently on Eliquis Was patient admitted / discharged? Hospital course, mention meds given and route, prescriptions, significant lab abnormalities, going to OR and other pertinent info. @ -Discharged. 78-year-old female presented to the ER with a chief complaint of a fall. History and physical exam completed. Vitals stable. Patient no signs of acute distress and nontoxic-appearing. No acute neurologic findings on exam. Chest pain reproducible to palpation. No erythema, contusions or abrasions. Normal lung sounds bilaterally. Bilateral upper and lower extremities neurovascular intact. No focal bony tenderness. Due to patient taking Eliquis CT was obtained. Patient received by mouth Tylenol for pain control in the ER. CT brain and C-spine negative for acute process. Chest x- ray interpreted by me negative for acute process. Results discussed with patient, all questions answered. Patient reporting improved pain. Chest pain believed to be musculoskeletal in nature as it is reproducible to palpation and exacerbated with movement of bilateral upper extremities. I advised close follow-up with primary care physician. Strict return parameters discussed. Patient discharged in stable condition. Patient and daughter verbally expressed understanding and agreement with care plan. Case discussed with ED attending, Dr. Alan. Undiagnosed new problem with uncertain prognosis? @ -No Drug Therapy requiring intensive monitoring for toxicity (Heparin, Nitro, Insulin, Cardizem)? @ -No Were any procedures done? @ -No Diagnosis/symptom? @ -Musculoskeletal pain/fall Acute, or Chronic, or Acute on Chronic? @ -Acute Uncomplicated (without systemic symptoms) or Complicated (systemic symptoms)? @ -Uncomplicated Side effects of treatment? @ -No Exacerbation, Progression, or Severe Exacerbation? @ -No Poses a threat to life or bodily function? How? (Chest pain, USA, VT, pneumonia, PE, COPD, DKA, ARF, appy, cholecystitis, CVA, Diverticulitis, Homicidal, Suicidal, threat to staff... and all critical care pts) @ -No - Radiology Data Radiology results: report reviewed, image reviewed Disposition Clinical Impression: Fall, Musculoskeletal pain Disposition: HOME SELF-CARE Condition: Stable Instructions (If sedation given, give patient instructions): Fall Prevention for Older Adults (ED) Additional Instructions: Continue take [id number] Tylenol for pain control. Follow-up with primary care physician. Return to the ER for any new or worsening concerns. Is patient prescribed a controlled substance at d/c from ED?: No Referrals: Kg Kolb MD [Primary Care Provider] - 1-2 days Time of Disposition: 21:26
--- NOTE | 2024-02-29 21:13 | CT ---
EXAMINATION TYPE: CT brain cspine wo con CT DLP: 1308.7 mGycm, Automated exposure control for dose reduction was used. DATE OF EXAM: 02/29/2024 8:40 PM COMPARISON: None. CLINICAL INDICATION:Female, 78 years old with history of fall with head inj. +thinners; Fall with hea d inj. +thinners. TECHNIQUE: Brain: Multiple axial CT images of the brain were obtained without IV contrast. Cspine: Axial CT images from the skull base to the inferior aspect of T2 we obtained without intraven ous contrast. Coronal and sagittal reformatted images were also reviewed. . FINDINGS: Brain: Extra-axial spaces: No abnormal extra-axial fluid collections. Ventricular system: Dilatation in proportion to cerebral atrophy. Cerebral parenchyma: Cerebral atrophy. No acute intraparenchymal hemorrhage or mass effect. The storm -white junction is well differentiated. Scattered hypoattenuating areas are seen within the white mat ter. Cerebellum: Unremarkable. Mass effect: No evidence of midline shift. Intracranial vasculature: Atherosclerotic calcifications of the intracranial vessels. Soft tissues: Normal. Calvarium/osseous structures: No depressed skull fracture. Paranasal sinuses and mastoid air cells: Clear. Visualized orbits: Bilaterally aphakia. Cervical spine: Fracture: None. Osseous structures: Multilevel degenerative disc disease changes with endplate spurring and disc oste ophyte complex's. Vertebral alignment: Within normal limits. Spinal canal/Neural Foramina: No evidence of significant spinal canal narrowing. No evidence for sign ificant neural foraminal stenosis. Neck soft tissues: Prevertebral soft tissues are within normal limits. Other: The airway is patent. The lung apices are clear. Severe atherosclerosis of the carotid bifurca tions. IMPRESSION: 1. No acute intracranial process. 2. No evidence of cervical spine fracture. 3. Moderate multilevel degenerative disc disease. 4. Severe atherosclerosis of the carotid bifurcations.
[2024-02-29 21:28] VITALS: BP 170/81; PULSE 56; RESP 16; TEMP 97.7
[2024-02-29] MEDS: MELATONIN 1 MG TAB PO ONE (21:55)
== END 2024-02-29 21:40 | disposition home or self-care (01) ==
LOC: EC 19:00
DX: M79.18 Myalgia, other site (principal); I70.90 Unspecified atherosclerosis; Z88.2 Allergy status to sulfonamides; W06.XXXA Fall from bed, initial encounter
CPT/HCPCS: 70450; 71046; 72125; 99284